=== PATIENT | male | born 1965 | race Caucasian/White ===

== ENCOUNTER 2018-03-15 02:18 | Emergency (ER) | payer OTHER, SELFPAY ==
[2018-03-15] VITALS (10 sets, daily range): BP systolic 112–184; BP diastolic 67–102; PULSE 66–73; RESP 16–20; TEMP 36.7; O2SAT 93–100; BMI 41.8
--- NOTE | 2018-03-15 02:31 | DI.CT.S_ITS ---
PROCEDURE: CT ABDOMEN PELVIS W CON INDICATIONS: severe abdominal pain. obstruction? volvulus? TECHNIQUE: After the administration of intravenous contrast, 5 mm thick sections acquired from the diaphragm to the symphysis. 5 mm coronal and sagittal reformats were acquired. For radiation dose reduction, the following was used: automated exposure control, adjustment of mA and/or kV according to patient size. COMPARISON: [facility], CT, ABDOMEN/PELVIS WITH CONTRAST, 04/10/2017, 14:10. 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 ABDOMEN: Lung bases: Lung bases are clear. Heart size is normal. Solid organs: Liver is normal in size and enhancement, liver showing a mild degree of diffuse fatty infiltration. Gallbladder appears normal. Biliary system is non dilated. Pancreas enhances normally. Spleen is normal in size and enhancement. No adrenal nodules. Normal right kidney. Left kidney is hydronephrotic secondary to a 3 mm obstructing calculus in the distal ureter, probably displaced from the midpole collecting system present on last exam. There is mild periureteric fat stranding. Left kidney also shows small exophytic cyst in the posterior lower pole and inferior lower pole as before. Peritoneum and bowel: Bowel loops demonstrate normal wall thickness and caliber. Normal appendix. Left colectomy with ostial hernia. No free fluid or air. Nodes and vessels: No retroperitoneal or mesenteric adenopathy by size criteria. Aorta and inferior vena cava are normal in size. Miscellaneous: Large ventral hernia developed since last exam and containing multiple loops of nonobstructed bowel. PELVIS: Genitourinary: Bladder wall thickness is normal. A 2 cm thickwalled fluid collection is again noted over the dome of the bladder, slightly smaller than on last exam. The fluid collection does not contain air on current study. There is mild surrounding fat stranding. The fluid collection is adjacent to the termination of the rectal stump where there are radiopaque sutures. Miscellaneous: No inguinal hernias or adenopathy. Bones: No suspicious bony lesions. No acute vertebral body compression fractures, mild anterior wedging L1 as before. IMPRESSION: 1. Left hydroureteronephrosis secondary to an obstructing 3 mm stone at the distal ureter. 2. Interval development of a large midline ventral hernia containing nonobstructed bowel loops. 3. Left ostial hernia has developed since last exam. 4. Small contained chronic abscess cavity at the dome of the bladder and adjacent to the rectal stump, decreased in size since last exam. Findings are concordant with the preliminary report. Dictated by: Vance Wan M.D. on 03/15/2018 at 8:53 Approved by: Vance Wan M.D. on 03/15/2018 at 9:04
[2018-03-15] MEDS: fentaNYL 100 MCG/2 ML INJ 150 MCG IV (02:51)
[2018-03-15] MEDS: KETAMINE 500 MG/10 ML INJ 15 MG IV (02:51)
[2018-03-15] MEDS: SODIUM CHLORIDE 0.9% 1,000 ML 1000 ML IV (02:52)
[2018-03-15 02:57] LABS: Add Manual Diff / Slide Review NO; Basophils Percent Auto 1.3 % (0-2); Eosinophils Percent Auto 2.9 % (2-4); Hematocrit 48.2 % (41-53); Hemoglobin 16.7 g/dL (13.5-17.5); Lymphocytes Percent Auto 18.6 % (25-40); Mean Corpuscular HGB Conc 34.6 % (30-36); Mean Corpuscular Hemoglobin 31.4 PG (26-34); Mean Corpuscular Volume 90.6 fL (80-100); Monocytes Percent Auto 8.5 % (3-14); Neutrophils Absolute Auto 11200 /uL (3000-5900); Neutrophils Percent Auto 68.7 % (50-75); Platelet Count 294 X10^3/uL (150-400); Red Blood Cell Count 5.32 X10^6/uL (4.5-5.9); Red Cell Distribution Width 13.7 % (11.6-14.8); White Blood Cell Count 16.3 X10^3/uL (4.5-11.0)
[2018-03-15] MEDS: KETAMINE 500 MG/10 ML INJ 25 MG IV (02:57)
[2018-03-15] MEDS: fentaNYL 100 MCG/2 ML INJ 50 MCG IV (02:57)
[2018-03-15 03:04] LABS: Alanine Aminotransferase 29 IU/L (21-72); Albumin 4.5 g/dL (3.5-5.0); Albumin Globulin Ratio 1.1 (1.0-2.8); Alkaline Phosphatase 96 U/L (38-126); Aspartate Aminotransferase 25 IU/L (17-59); BUN Creatinine Ratio 21.3 (6-22); Bilirubin Total 1.1 mg/dL (0.2-1.3); Calcium 9.9 mg/dL (8.4-10.2); Estimated Glomerular Filt Rate > 60.0 mL/min (>60); Globulin 4.1 g/dL (1.7-4.1); Glucose 106 mg/dL (70-100); HEMOLYSIS < 15 (0-50); Lactate (Lactic Acid) 3.2 mmol/L (0.7-2.1); Lipase 98 U/L (23-300); Potassium 4.4 mmol/L (3.4-5.1); Sodium 143 mmol/L (137-145); Total Protein 8.6 g/dL (6.3-8.2)
--- NOTE | 2018-03-15 03:04 | DI.RAD.S_ITS ---
PROCEDURE: XR CHEST 1V INDICATIONS: upper abdominal pain TECHNIQUE: One view of the chest was acquired. COMPARISON: [facility], , ABDOMEN ACUTE SERIES, 12/19/2011, 2:05. FINDINGS: Surgical changes and devices: None. Lungs and pleura: No pleural effusions or pneumothorax. Lungs are clear. Mediastinum: Mediastinal contours appear normal, superior mediastinum magnified by supine, AP view. Heart size is normal. Bones and chest wall: No suspicious bony lesions. Overlying soft tissues appear unremarkable. IMPRESSION: No acute cardiopulmonary abnormality Dictated by: Vance Wan M.D. on 03/15/2018 at 7:59 Approved by: Vance Wan M.D. on 03/15/2018 at 8:01
[2018-03-15] MEDS: KETAMINE 500 MG/10 ML INJ 20 MG IV (03:15)
--- NOTE | 2018-03-15 03:30 | PC.NURSE ---
pt is responsive to ketamine for 15min or so per push. provider notified. pain is coming in large waves. pt is unable to hold still, follow diretions or even talk during pain spells.
[2018-03-15 03:37] LABS: Troponin I < 0.012 ng/mL (0.01-0.034)
[2018-03-15] MEDS: HYDROMORPHONE 2 MG INJ 3 MG IM (03:51)
[2018-03-15] MEDS: KETOROLAC 60 MG/2 ML VIAL IM (04:19)
[2018-03-15 05:30] LABS: Add Manual Diff / Slide Review NO; Basophils Percent Auto 0.7 % (0-2); Eosinophils Percent Auto 0.9 % (2-4); Hematocrit 44.7 % (41-53); Hemoglobin 15.3 g/dL (13.5-17.5); Lymphocytes Percent Auto 6.9 % (25-40); Mean Corpuscular HGB Conc 34.3 % (30-36); Mean Corpuscular Volume 90.4 fL (80-100); Monocytes Percent Auto 7.1 % (3-14); Neutrophils Absolute Auto 12300 /uL (3000-5900); Neutrophils Percent Auto 84.4 % (50-75); Platelet Count 220 X10^3/uL (150-400); Red Blood Cell Count 4.94 X10^6/uL (4.5-5.9); Red Cell Distribution Width 13.5 % (11.6-14.8); White Blood Cell Count 14.6 X10^3/uL (4.5-11.0)
--- NOTE | 2018-03-15 05:49 | PC.NURSE ---
distended abdomen adjacent to ostomy site. reports no output for 2 days in ostomy.
[2018-03-15 05:56] LABS: Appearance Urine UA CLEAR; Bilirubin Urine UA NEGATIVE (NEGATIVE); Color Urine UA YELLOW; Glucose Urine UA NEGATIVE (Negative); Ketones Urine UA 1+ (NEGATIVE); Leukocyte Esterase Urine UA NEGATIVE (NEGATIVE); Nitrite Urine UA NEGATIVE (NEGATIVE); Occult Blood Urine UA 2+ (Negative); Protein Urine UA NEGATIVE (Negative); Specific Gravity Urine UA <=1.005 (1.000-1.035); Urobilinogen Urine UA 0.2 E.U./dL (0.2)
[2018-03-15 06:05] LABS: RBC Urine 1-5/HPF (0-5/HPF); Squamous Epithelial Cell Urine 0-1 /HPF
[2018-03-15 06:06] LABS: Bacteria Urine None Seen; Culture Indicated Urine Cult Not Indicated
--- NOTE | 2018-03-15 06:33 | ED.ABDPAIN ---
HPI - Abdominal Pain General Stated Complaint: has colostomy, guts are hurting Time Seen by Provider: 03/15/18 02:31 History of Present Illness HPI narrative: HPI 53-year-old obese male with a colostomy (2/2 diverticulitis surgery) presents for evaluation of severe abdominal pain with dissension that is been present for 3 hours after eating a hamburger. Patient reports that he has a fractured tailbone with long-standing chronic pain for which he takes over 20 mg PO Dilaudid a day. M/S/F/SocHx notable for: please see HPI; remainder reviewed with patient and in chart. ROS: Negative constitutional, eye, cardiovascular, pulmonary, GI, , MSK, skin, neurologic, psychiatric, endocrine unless noted in the HPI. Exam Gen: pleasant, appears to be in significant discomfort. HEENT: NC, AT, PEERL, EOMI. Resp: Clear to auscultation bilaterally, normal work of breathing, no accessory muscle usage. Card: Regular rate and rhythm with no murmurs, rubs, or gallops, extremities warm and well perfused. GI: markedly distended, diffuse tenderness to palpation. Ostomy and left side without output. : No suprapubic tenderness to palpation. No CVA tenderness percussion. MSK: No visible deformities, strength and tone without visually appreciable deficit. Skin: Normal color with no visible lesions. Neuro: AO x 3, no facial asymmetry, vision and hearing WNL. Psych: Mood and affect appropriate. Labs / Imaging: WBC 16.3, hemoglobin 16.7, sodium 143, potassium 4.4, lactic acid 3.2 WBC 14.6, lactic 1.0 EKG: SR 69 bpm, no ST segment elevations or depressions, no LBBB. CT abdomen/pelvis: mildly obstructing 3.2 mm distal left ureteral stone. Status post colectomy with left sided colostomy. Interval development of large mid abdominal ventral war hernia containing multiple small bowel segments with no evidence for obstruction. Ostomy hernia is present having develop from the previous study. 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 This diminish in size from prior study. UA - 2+ occult blood, negative nitrate, negative leukocyte esterase, 1-5 RBCs, 0-1 epithelial cells, no bacteria. MDM Previous chart, nursing note, labs, imaging, and vitals reviewed. A: 53-year-old obese male with a colostomy (2/2 diverticulitis surgery) presents for evaluation of severe abdominal pain with dissension that is been present for 3 hours after eating a hamburger. DDx & Evaluation: patient with difficult to control pain. Initial 100 ??g fentanyl and 15 mg ketamine without significant appreciable effect. Titrated meds at bedside to an additional 100 ??g fentanyl and 25 mg ketamine with good analgesia. Patient given IV fluids. Overnight radiology read without evidence of small bowel obstruction and the site of his herniation or other complications, however it is notable for 3 mm left-sided obstructing stone. While the patient's marked pain response may be due to ureterolithiasis combined with central centralization/hyperalgesia due to his significant daily opiate requirement, however there is a concern that is overall clinical picture may not be congruent with imaging. The case was discussed with the surgeon on-call at [facility], they noted that if the patient's condition was due to a surgical issue is beyond the care of this facility. They requested outside surgical consultation. Images were sent to and the patient's presentation, labs, and imaging were jointly reviewed with Dr. Alejandra. The patient also was given 60 mg IM ketorolac (IV access had been lost at this point). Patient with good analgesia following ketorolac. Repeat CBC and lactic acid with downtrending leukocytosis and normalization of the patient's lactic acid level. Strongly suspect ureterolithiasis as a cause of the patient's pain. No evidence of urinary tract infection. Patient with persistent resolution of pain after the ketorolac. Discharge with PCP follow-up recommended. Patient provided with written copy of CT impression. Impression: ureterolithiasis. (please reference below for remainder of encounter information) Related Data Home Medications Medication Instructions Recorded Confirmed trazodone 100 mg PO HS #0 11/17/11 ACETAMINOPHEN 650 mg PO Q6H #0 03/08/17 hydromorphone [Dilaudid] 6 mg PO Q4HP PRN #0 03/08/17 ibuprofen 800 mg PO TIDP PRN #0 03/08/17 [ORAJEL] PRN PRN #0 06/11/17 benzocaine [Anbesol (benzocaine) 1 oz PO PRN PRN #0 06/11/17 Max Str] oxycodone 5 mg PO Q3HP PRN #0 06/11/17 penicillin V potassium 500 mg PO Q6H #0 06/11/17 Previous Rx's Medication Instructions Recorded clindamycin HCl [Cleocin HCl] 300 mg PO TID #30 cap 06/11/17 hydromorphone [Dilaudid] 2 tab PO QIDP PRN #40 tab 06/11/17 Allergies Allergy/AdvReac Type Severity Reaction Status Date / Time No Known Allergies Allergy Uncoded 02/02/18 12:00 [facility] Social History Smoking Status: Never smoker Exam Initial Vital Signs Initial Vital Signs: Vital Signs Pulse Rate 72 03/15/18 03:00 Blood Pressure 142/67 H 03/15/18 03:00 Course Orders Ordered: ED Orders 03/15/18 02:31 CT abdomen pelvis w con Stat 03/15/18 02:40 Complete Blood Count AUTO DIFF Stat Comprehensive Metabolic Panel Stat Lactate (Lactic Acid) Stat Lipase Stat Troponin I Stat 03/15/18 03:04 XR chest 1V Stat EKG-12 Lead Stat 03/15/18 05:20 Complete Blood Count AUTO DIFF Stat Lactate (Lactic Acid) Stat 03/15/18 05:34 UA Complete [Urinalysis and Microscopic] Stat Hydromorphone HCl (Dilaudid) 3 mg IM Q4H PRN PRN Reason: Pain, Severe Discontinued Medications Fentanyl (Sublimaze) 150 mcg IV NOW ONE Stop: 03/15/18 02:32 Last Admin: 03/15/18 02:51 Dose: 150 mcg Fentanyl (Sublimaze) 50 mcg IV Q1H ONE Stop: 03/15/18 02:58 Hydromorphone HCl (Dilaudid) 1.5 mg IV NOW ONE Stop: 03/15/18 03:29 Sodium Chloride (Normal Saline 0.9%) 1,000 mls @ 1,000 mls/hr IV BOLUS ONE Stop: 03/15/18 03:30 Last Admin: 03/15/18 02:52 Dose: 1,000 mls/hr Ketamine HCl (Ketalar) 15 mg IV NOW ONE Stop: 03/15/18 02:32 Last Admin: 03/15/18 02:51 Dose: 15 mg Ketamine HCl (Ketalar) 500 mg IV CONT ONE Stop: 03/15/18 04:46 Ketamine HCl (Ketalar) 100 mg IM NOW ONE Stop: 03/15/18 03:52 Ketamine HCl (Ketalar) 25 mg IV NOW ONE Stop: 03/15/18 02:58 Ketamine HCl (Ketalar) 20 mg IV NOW ONE Stop: 03/15/18 03:16 Ketorolac Tromethamine (Toradol) 60 mg IM NOW ONE Stop: 03/15/18 04:20 Vital Signs - 8 hr 03/15/18 03:00 03/15/18 03:15 03/15/18 03:30 Temperature Pulse Rate 72 71 66 Respiratory Rate 16 16 Blood Pressure Blood Pressure [Left Arm] 142/67 H 126/68 H 127/84 H Pulse Oximetry 100 100 03/15/18 04:15 03/15/18 04:30 03/15/18 04:45 Temperature Pulse Rate 68 69 69 Respiratory Rate 16 16 16 Blood Pressure Blood Pressure [Left Arm] 153/93 H 149/89 H 149/89 H Pulse Oximetry 100 100 94 03/15/18 05:04 03/15/18 05:42 03/15/18 06:22 Temperature 98.0 F Pulse Rate 73 73 70 Respiratory Rate 20 20 16 Blood Pressure 184/102 H Blood Pressure [Left Arm] 135/79 H 112/71 Pulse Oximetry 98 98 94 MDM - Abdominal Pain Lab Data Result diagrams: 03/15/18 05:20 03/15/18 02:40 Lab Results 03/15/18 03/15/18 03/15/18 Range/Units 02:40 02:40 02:40 WBC 16.3 H (4.5-11.0) X10^3/uL RBC 5.32 (4.5-5.9) X10^6/uL Hgb 16.7 (13.5-17.5) g/dL Hct 48.2 (41-53) % MCV 90.6 (80-100) fL MCH 31.4 (26-34) PG MCHC 34.6 (30-36) % RDW 13.7 (11.6-14.8) % Plt Count 294 (150-400) X10^3/uL Neut % (Auto) 68.7 (50-75) % Lymph % (Auto) 18.6 L (25-40) % [place] % (Auto) 8.5 (3-14) % Eos % (Auto) 2.9 (2-4) % Baso % (Auto) 1.3 (0-2) % Neut # (Auto) 91857 H (4198-9899) /uL Sodium 143 (137-145) mmol/L Potassium 4.4 (3.4-5.1) mmol/L Chloride 106.0 (98-107) mmol/L Carbon Dioxide 19.0 L (22-32) mmol/L BUN 17.0 (9-20) mg/dL Creatinine 0.80 (0.66-1.25) mg/dL Estimated GFR > 60.0 (>60) mL/min BUN/Creatinine Ratio 21.3 (6-22) Glucose 106 H (70-100) mg/dL Lactate 3.2 H (0.7-2.1) mmol/L Calcium 9.9 (8.4-10.2) mg/dL Total Bilirubin 1.1 (0.2-1.3) mg/dL AST 25 (17-59) IU/L ALT 29 (21-72) IU/L Alkaline Phosphatase 96 (38-126) U/L Troponin I (0.01-0.034) ng/mL Total Protein 8.6 H (6.3-8.2) g/dL Albumin 4.5 (3.5-5.0) g/dL Globulin 4.1 (1.7-4.1) g/dL Albumin/Globulin Ratio 1.1 (1.0-2.8) Lipase 98 (23-300) U/L Urine Color Urine Appearance Urine pH (4.5-8.0) Ur Specific [place] (1.000-1.035) Urine Protein (Negative) Urine Glucose (UA) (Negative) g/dL Urine Ketones (NEGATIVE) Urine Occult Blood (Negative) Urine Nitrate (NEGATIVE) Urine Bilirubin (NEGATIVE) Urine Urobilinogen (0.2) E.U./dL Ur Leukocyte Esterase (NEGATIVE) Urine RBC (0-5/HPF) Ur Squamous Epith Cells Urine Bacteria (None) Ur Culture Indicated? Micro UA Comment 03/15/18 03/15/18 03/15/18 Range/Units 02:40 05:20 05:20 WBC 14.6 H (4.5-11.0) X10^3/uL RBC 4.94 (4.5-5.9) X10^6/uL Hgb 15.3 (13.5-17.5) g/dL Hct 44.7 (41-53) % MCV 90.4 (80-100) fL MCH 31.0 (26-34) PG MCHC 34.3 (30-36) % RDW 13.5 (11.6-14.8) % Plt Count 220 (150-400) X10^3/uL Neut % (Auto) 84.4 H (50-75) % Lymph % (Auto) 6.9 L (25-40) % [place] % (Auto) 7.1 (3-14) % Eos % (Auto) 0.9 L (2-4) % Baso % (Auto) 0.7 (0-2) % Neut # (Auto) 58607 H (1707-0205) /uL Sodium (137-145) mmol/L Potassium (3.4-5.1) mmol/L Chloride (98-107) mmol/L Carbon Dioxide (22-32) mmol/L BUN (9-20) mg/dL Creatinine (0.66-1.25) mg/dL Estimated GFR (>60) mL/min BUN/Creatinine Ratio (6-22) Glucose (70-100) mg/dL Lactate 1.0 (0.7-2.1) mmol/L Calcium (8.4-10.2) mg/dL Total Bilirubin (0.2-1.3) mg/dL AST (17-59) IU/L ALT (21-72) IU/L Alkaline Phosphatase (38-126) U/L Troponin I < 0.012 (0.01-0.034) ng/mL Total Protein (6.3-8.2) g/dL Albumin (3.5-5.0) g/dL Globulin (1.7-4.1) g/dL Albumin/Globulin Ratio (1.0-2.8) Lipase (23-300) U/L Urine Color Urine Appearance Urine pH (4.5-8.0) Ur Specific [place] (1.000-1.035) Urine Protein (Negative) Urine Glucose (UA) (Negative) g/dL Urine Ketones (NEGATIVE) Urine Occult Blood (Negative) Urine Nitrate (NEGATIVE) Urine Bilirubin (NEGATIVE) Urine Urobilinogen (0.2) E.U./dL Ur Leukocyte Esterase (NEGATIVE) Urine RBC (0-5/HPF) Ur Squamous Epith Cells Urine Bacteria (None) Ur Culture Indicated? Micro UA Comment 03/15/18 Range/Units 05:34 WBC (4.5-11.0) X10^3/uL RBC (4.5-5.9) X10^6/uL Hgb (13.5-17.5) g/dL Hct (41-53) % MCV (80-100) fL MCH (26-34) PG MCHC (30-36) % RDW (11.6-14.8) % Plt Count (150-400) X10^3/uL Neut % (Auto) (50-75) % Lymph % (Auto) (25-40) % [place] % (Auto) (3-14) % Eos % (Auto) (2-4) % Baso % (Auto) (0-2) % Neut # (Auto) (3860-0450) /uL Sodium (137-145) mmol/L Potassium (3.4-5.1) mmol/L Chloride (98-107) mmol/L Carbon Dioxide (22-32) mmol/L BUN (9-20) mg/dL Creatinine (0.66-1.25) mg/dL Estimated GFR (>60) mL/min BUN/Creatinine Ratio (6-22) Glucose (70-100) mg/dL Lactate (0.7-2.1) mmol/L Calcium (8.4-10.2) mg/dL Total Bilirubin (0.2-1.3) mg/dL AST (17-59) IU/L ALT (21-72) IU/L Alkaline Phosphatase (38-126) U/L Troponin I (0.01-0.034) ng/mL Total Protein (6.3-8.2) g/dL Albumin (3.5-5.0) g/dL Globulin (1.7-4.1) g/dL Albumin/Globulin Ratio (1.0-2.8) Lipase (23-300) U/L Urine Color Yellow Urine Appearance Clear Urine pH 8.0 (4.5-8.0) Ur Specific [place] <=1.005 (1.000-1.035) Urine Protein Negative (Negative) Urine Glucose (UA) Negative (Negative) g/dL Urine Ketones 1+ H (NEGATIVE) Urine Occult Blood 2+ H (Negative) Urine Nitrate Negative (NEGATIVE) Urine Bilirubin Negative (NEGATIVE) Urine Urobilinogen 0.2 (0.2) E.U./dL Ur Leukocyte Esterase Negative (NEGATIVE) Urine RBC 1-5/hpf (0-5/HPF) Ur Squamous Epith Cells 0-1 /hpf Urine Bacteria None seen (None) Ur Culture Indicated? Cult not indicated Micro UA Comment Not Reportable Discharge Plan Departure Prescriptions: No Action trazodone 100 MG tablet 100 mg PO HS Qty: 0 RF: 0 ACETAMINOPHEN 650 mg PO Q6H Qty: 0 RF: 0 ibuprofen 800 MG tablet 800 mg PO TIDP PRNQty: 0 RF: 0 hydromorphone [Dilaudid] 2 MG tablet 6 mg PO Q4HP PRNQty: 0 RF: 0 penicillin V potassium 500 MG tablet 500 mg PO Q6H Qty: 0 RF: 0 oxycodone 5 MG tablet 5 mg PO Q3HP PRNQty: 0 RF: 0 benzocaine [Anbesol (benzocaine) Max Str] 20 % gel 1 oz PO PRN PRNQty: 0 RF: 0 [ORAJEL] PRN PRNQty: 0 RF: 0 hydromorphone [Dilaudid] 4 MG tablet 2 tab PO QIDP PRNQty: 40 RF: 0 clindamycin HCl [Cleocin HCl] 300 MG capsule 300 mg PO TID Qty: 30 RF: 0
[2018-03-15] MEDS: KETAMINE 500 MG/10 ML INJ 100 MG IM (06:39)
[2018-03-15 06:50] LABS: Reflexed Lactate in 2 Hours Y
== END 2018-03-15 07:36 | disposition home or self-care (01) ==
PROVIDERS: Emergency Provider Emergency Medicine
DX: N20.1 Calculus of ureter (principal)
CPT/HCPCS: 36415; 36591; 71045; 74177; 80053; 81001; 83605; 83690; 84484; 85025; 93005; 96361; 96374; 96375; 96376; 99285; 99291; 99292; J1170; J1885; J3010; Q9967

== ENCOUNTER 2018-09-16 17:59 | Emergency (ER) | payer OTHER, SELFPAY ==
[2018-09-16 18:00] VITALS: BP 181/96; PULSE 82; RESP 18; TEMP 36.2; O2SAT 96; BMI 42.3
[2018-09-16] MEDS: PANTOPRAZOLE 40 MG VIAL IV (18:44)
[2018-09-16] MEDS: ONDANSETRON 4 MG/2 ML INJ IV (18:44)
[2018-09-16] MEDS: HYDROMORPHONE 1 MG INJ 2 MG IV ×3 (18:48→23:03)
--- NOTE | 2018-09-16 18:48 | ED.ABDPAIN ---
HPI - Abdominal Pain General Chief Complaint: Abdominal Pain Stated Complaint: Pain in intestines, bleeding rectum Time Seen by Provider: 09/16/18 18:13 Source: patient Mode of arrival: ambulatory Limitations: no limitations History of Present Illness HPI narrative: 53-year-old nonsmoking male with extensive abdominal surgical history presents to the emergency department with a chief complaint a few days of worsening left lower quadrant pain and now the passage mucus or pus from his rectum along with some blood. He Dunlap diverticulitis for about 6 years prior to partial colectomy in December of 2016. His surgery was performed at [facility] and they did a reanastomosis which unfortunately dehisced about 1 month later. The patient had multiple surgeries as a result this unfortunate complication and in the and had a diverting colostomy after an exploratory laparotomy. He has largely been well for the past year and has not seen his surgeons at [facility] in about 1 year. His local care is at [facility]. He has had subjective fever and chills but denies nausea or vomiting. He denies runny nose, sore throat or cough. MD complaint: abdominal pain Onset (ago): day(s) Related Data Home Medications Medication Instructions Recorded Confirmed trazodone 100 mg PO HS #0 11/17/11 ACETAMINOPHEN 650 mg PO Q6H #0 03/08/17 hydromorphone [Dilaudid] 6 mg PO Q4HP PRN #0 03/08/17 ibuprofen 800 mg PO TIDP PRN #0 03/08/17 [ORAJEL] PRN PRN #0 06/11/17 benzocaine [Anbesol (benzocaine) 1 oz PO PRN PRN #0 06/11/17 Max Str] oxycodone 5 mg PO Q3HP PRN #0 06/11/17 penicillin V potassium 500 mg PO Q6H #0 06/11/17 Previous Rx's Medication Instructions Recorded clindamycin HCl [Cleocin HCl] 300 mg PO TID #30 cap 06/11/17 hydromorphone [Dilaudid] 2 tab PO QIDP PRN #40 tab 06/11/17 ciprofloxacin HCl 500 mg PO Q12H #20 tab 09/16/18 metronidazole [Flagyl] 500 mg PO QID 10 Days #40 tab 11/23/18 Allergies Allergy/AdvReac Type Severity Reaction Status Date / Time No Known Drug Allergies Allergy Verified 09/16/18 18:00 Review of Systems Review of Systems All systems reviewed & are unremarkable except as noted in HPI and below Constitutional Reports chills, Reports fever(s), Denies lethargy and Denies weakness Eyes Denies change in vision, Denies eye discharge, Denies irritation and Denies loss of vision ENT Ears, Nose, Mouth, and Throat: Denies change in voice, Denies neck pain and Denies sore throat Cardiovascular Denies chest pain, Denies irregular heart rhythm, Denies lightheadedness, Denies palpitations, Denies dyspnea, Denies dyspnea on exertion and Denies orthopnea Respiratory Denies cough, Denies dyspnea, Denies dyspnea on exertion and Denies wheezing Gastrointestinal Gastrointestinal: Reports abdominal pain, Denies change in bowel habits, Denies diarrhea, Denies nausea and Denies vomiting Comments: rectal discharge (sent to lab) Genitourinary Denies hematuria, Denies flank pain, Denies urinary incontinence and Denies urinary urgency Musculoskeletal Denies neck pain Integumentary/Breasts Denies pruritus, Denies erythema, Denies rash and Denies wounds Neurologic Denies confusion, Denies loss of vision and Denies weakness Psychiatric Denies anxiety, Denies confusion, Denies depression, Denies homicidal ideation and Denies suicidal ideation Endocrine Denies palpitations Hematologic/Lymphatic Denies easy bruising Allergic/Immunologic Denies wheezing PFSH Social History Smoking Status: Never smoker Exam Narrative Exam Narrative: GENERAL: Pleasant 53-year-old male in mild distress HEAD: Atraumatic. Normocephalic. No temporal or scalp tenderness. EYES: Pupils equal round and reactive. Extraocular motions intact. No scleral icterus. No injection or drainage. ENT: Nose without bleeding, purulent drainage or septal hematoma. Throat without erythema, tonsillar hypertrophy or exudate. Uvula midline. Airway patent. NECK: Trachea midline. No JVD or lymphadenopathy. Supple, nontender, no meningeal signs. CARDIOVASCULAR: Regular rate and rhythm without murmurs, gallops, or rubs. RESPIRATORY: Clear to auscultation. Breath sounds equal bilaterally. No wheezes, rales, or rhonchi. GASTROINTESTINAL: Abdomen soft, tender in left lower quadrant, nondistended. Ostomy filling with normal volume stool No hepato-splenomegaly, or palpable masses. No guarding. EXTREMITIES: No clubbing, cyanosis, or edema. No joint tenderness, effusion, or edema noted. BACK: Nontender without deformity or crepitance. No flank tenderness. NEURO: AOx3. SKIN: No rash or erythema. Initial Vital Signs Initial Vital Signs: Vital Signs Temperature 97.2 F L 09/16/18 18:00 Pulse Rate 82 09/16/18 18:00 Respiratory Rate 18 09/16/18 18:00 Blood Pressure 181/96 H 09/16/18 18:00 Pulse Oximetry 96 09/16/18 18:00 Course Orders Ordered: ED Orders 09/16/18 18:25 Complete Blood Count AUTO DIFF Stat Comprehensive Metabolic Panel Stat Partial Thromboplastin Time Stat Prothrombin Time INR Stat Type and Screen Stat 09/16/18 18:30 GI Panel Stat Stool Culture Stat 09/16/18 19:03 CT abdomen pelvis w con Stat Discontinued Medications Hydromorphone HCl (Dilaudid) 2 mg IV NOW ONE Stop: 09/16/18 18:45 Last Admin: 09/16/18 18:48 Dose: 2 mg Hydromorphone HCl (Dilaudid) 2 mg IV NOW ONE Stop: 09/16/18 20:11 Last Admin: 09/16/18 20:17 Dose: 2 mg Hydromorphone HCl (Dilaudid) 2 mg IV NOW ONE Stop: 09/16/18 23:02 Last Admin: 09/16/18 23:03 Dose: 2 mg Sodium Chloride (Normal Saline 0.9%) 1,000 mls @ 1,000 mls/hr IV BOLUS ONE Stop: 09/16/18 21:15 Last Infusion: 09/16/18 21:32 Dose: 0 mls/hr Admin: 09/16/18 20:16 Dose: 1,000 mls/hr Ondansetron HCl (Zofran) 4 mg IV NOW ONE Stop: 09/16/18 18:16 Last Admin: 09/16/18 18:44 Dose: 4 mg Pantoprazole Sodium (Protonix) 40 mg IV NOW ONE Stop: 09/16/18 18:16 Last Admin: 09/16/18 18:44 Dose: 40 mg Consultations Consultation #1: consult with both radiology and gen. surgery whom agree CT ABD/Pelvis with oral/IV contrast is appropriate, but we will wait 90 minutes rather than typical 45 minutes. Consultation #2: call to [facility] whom suggests that given benign vitals, labs and lack of abscess or other more ominous finding on CT that patient can follow up in outpatient setting. They recommend ABX and will reach out to him on wednesday for follow up Vital Signs - 8 hr 09/16/18 20:21 09/16/18 23:27 Pulse Rate 80 78 Respiratory Rate 12 18 Blood Pressure 131/71 Blood Pressure [Right Arm] 134/78 Pulse Oximetry 97 99 MDM - Abdominal Pain Differential Diagnosis Differential diagnosis: Likely abdominal pain, acute appendicitis, calculus of kidney, constipation, diverticulitis, gastroenteritis, pancreatitis and small bowel obstruction Medical Records Attestation: I reviewed the patient's medical records. Lab Data Attestation: I reviewed the patient's lab results. Result diagrams: 09/16/18 18:25 09/16/18 18:25 Lab Results 09/16/18 09/16/18 09/16/18 Range/Units 18:25 18:25 18:25 WBC 12.0 H (4.5-11.0) X10^3/uL RBC 4.86 (4.5-5.9) X10^6/uL Hgb 15.1 (13.5-17.5) g/dL Hct 45.3 (41-53) % MCV 93.2 (80-100) fL MCH 31.0 (26-34) PG MCHC 33.3 (30-36) % RDW 13.9 (11.6-14.8) % Plt Count 236 (150-400) X10^3/uL Neut % (Auto) 73.4 (50-75) % Lymph % (Auto) 15.7 L (25-40) % [place] % (Auto) 7.4 (3-14) % Eos % (Auto) 2.8 (2-4) % Baso % (Auto) 0.7 (0-2) % Neut # (Auto) 8800 H (7067-1873) /uL PT 12.8 H (10.1-12.7) SECONDS INR 1.2 (0.9-1.3) APTT 28 (26.4-36.2) SECONDS Sodium 141 (137-145) mmol/L Potassium 4.4 (3.4-5.1) mmol/L Chloride 103 (98-107) mmol/L Carbon Dioxide 26 (22-32) mmol/L BUN 9 (9-20) mg/dL Creatinine 0.60 L (0.66-1.25) mg/dL Estimated GFR > 60.0 (>60) mL/min BUN/Creatinine Ratio 15.0 (6-22) Glucose 109 H (70-100) mg/dL Calcium 8.9 (8.4-10.2) mg/dL Total Bilirubin 0.4 (0.2-1.3) mg/dL AST 19 (17-59) IU/L ALT 30 (21-72) IU/L Alkaline Phosphatase 94 (38-126) U/L Total Protein 7.8 (6.3-8.2) g/dL Albumin 4.1 (3.5-5.0) g/dL Globulin 3.7 (1.7-4.1) g/dL Albumin/Globulin Ratio 1.1 (1.0-2.8) Stool Aeromonas Cult (Not Detect) Stl C. cayetanensis PCR (Not Detect) Stool Rotavirus (PCR) (Not Detect) Stool Adenovirus (PCR) (Not Detect) Stool Astrovirus (PCR) (Not Detect) Stool Cryptosporidium PCR (Not Detect) Stl E.coli Shiga Tox PCR (Not Detect) St Sh/Enteroin Ecoli PCR (Not Detect) Stool E coli O157 PCR Stl Enterotoxigenic E PCR (Not Detect) Stool EPEC (PCR) (Not Detect) Stl E. histolytica PCR (Not Detect) Stool Giardia Lamblia PCR (Not Detect) Stool Sapovirus (PCR) (Not Detect) Stl P. shigelloides PCR (Not Detect) St Y.enterocolitica PCR (Not Detect) Stool Vibrio (PCR) (Not Detect) Stl Vibrio cholerae PCR (Not Detect) Stl Enteroaggr Ecoli PCR (Not Detect) Stl Norovirus GI/GII PCR (Not Detect) Campylobacter (PCR) (Not Detect) C. difficile Tox (PCR) (Not Detect) Salmonella (PCR) (Not Detect) Blood Type Antibody Screen 09/16/18 09/16/18 Range/Units 18:25 18:30 WBC (4.5-11.0) X10^3/uL RBC (4.5-5.9) X10^6/uL Hgb (13.5-17.5) g/dL Hct (41-53) % MCV (80-100) fL MCH (26-34) PG MCHC (30-36) % RDW (11.6-14.8) % Plt Count (150-400) X10^3/uL Neut % (Auto) (50-75) % Lymph % (Auto) (25-40) % [place] % (Auto) (3-14) % Eos % (Auto) (2-4) % Baso % (Auto) (0-2) % Neut # (Auto) (8801-4481) /uL PT (10.1-12.7) SECONDS INR (0.9-1.3) APTT (26.4-36.2) SECONDS Sodium (137-145) mmol/L Potassium (3.4-5.1) mmol/L Chloride (98-107) mmol/L Carbon Dioxide (22-32) mmol/L BUN (9-20) mg/dL Creatinine (0.66-1.25) mg/dL Estimated GFR (>60) mL/min BUN/Creatinine Ratio (6-22) Glucose (70-100) mg/dL Calcium (8.4-10.2) mg/dL Total Bilirubin (0.2-1.3) mg/dL AST (17-59) IU/L ALT (21-72) IU/L Alkaline Phosphatase (38-126) U/L Total Protein (6.3-8.2) g/dL Albumin (3.5-5.0) g/dL Globulin (1.7-4.1) g/dL Albumin/Globulin Ratio (1.0-2.8) Stool Aeromonas Cult Awaiting culture res (Not Detect) Stl C. cayetanensis PCR Not detected (Not Detect) Stool Rotavirus (PCR) Not detected (Not Detect) Stool Adenovirus (PCR) Not detected (Not Detect) Stool Astrovirus (PCR) Not detected (Not Detect) Stool Cryptosporidium PCR Not detected (Not Detect) Stl E.coli Shiga Tox PCR Not detected (Not Detect) St Sh/Enteroin Ecoli PCR Not detected (Not Detect) Stool E coli O157 PCR Not Reportable Stl Enterotoxigenic E PCR Not detected (Not Detect) Stool EPEC (PCR) Not detected (Not Detect) Stl E. histolytica PCR Not detected (Not Detect) Stool Giardia Lamblia PCR Not detected (Not Detect) Stool Sapovirus (PCR) Not detected (Not Detect) Stl P. shigelloides PCR Not detected (Not Detect) St Y.enterocolitica PCR Not detected (Not Detect) Stool Vibrio (PCR) Not detected (Not Detect) Stl Vibrio cholerae PCR Not detected (Not Detect) Stl Enteroaggr Ecoli PCR Not detected (Not Detect) Stl Norovirus GI/GII PCR Not detected (Not Detect) Campylobacter (PCR) Not detected (Not Detect) C. difficile Tox (PCR) Not detected (Not Detect) Salmonella (PCR) Not detected (Not Detect) Blood Type A Negative Antibody Screen Negative Imaging Data CT scan - abdomen: Radiologist's impression: Chart Viewer Diagnostics DATE TYPE STATUS AUTHOR Hx 09/16/18 19:03 Selena Poole 03/15/18 03:04 Vance Wan 03/15/18 02:31 Vance WanWillem bonilla A 53, M0 1965 DEP ER, ED - Main ED: R02 177.8cm 133.81kg BSA: 2.46m? BMI: 42.3kg/m? Abdominal Pain Search Chart NF - Not included in interaction checking No Known Drug Allergies ONSET 09/16/18 23:27 [place] [address] CT Scan Report Signed Patient: DelonWillem bonilla [facility]#: [id number] : 1965Acct:[id number] Age/Sex: 53 / MDate of Service: 09/16/18 Loc: ED Accession Number: [id number] Procedure: CT abdomen pelvis w con Ordering Provider: Yury Amato D.O. PROCEDURE: CT ABDOMEN PELVIS W CON INDICATIONS: severe LLQ pain, extensive surgical hx TECHNIQUE: After the administration of oral and intravenous contrast, 5 mm thick sections acquired from the diaphragms to the symphysis. 5 mm thick coronal and sagittal reformats were performed. For radiation dose reduction, the following was used: automated exposure control, adjustment of mA and/or kV according to patient size. COMPARISON: [facility], CT, CT ABDOMEN PELVIS W CON, 03/15/2018, 3:07. FINDINGS: Image quality: Excellent. ABDOMEN: Lung bases: Lung bases are clear. Heart size is normal. Solid organs: Liver is normal in size and enhancement. Gallbladder is within normal limits. Biliary system is non-dilated. Pancreas enhances normally. Spleen is normal in size and enhancement. No adrenal nodules. Kidneys are normal in size and enhancement, without hydronephrosis. Peritoneum and bowel: Stomach, small bowel, and colon loops are normal in caliber and wall thickness. Duodenal diverticulum is present, as before. The rectum is oversewn, and is contiguous with the urinary bladder down , as before. No free fluid or air. Nodes and vessels: No retroperitoneal or mesenteric adenopathy. Aorta and inferior vena cava are normal in caliber. Miscellaneous: Left anterior abdominal colostomy is present. There is a new small bowel containing parastomal hernia measuring 32 mm in width. There is a large anterior abdominal wall small bowel containing hernia measuring 23 cm , as before. increased periumbilical small bowel containing hernia measuring 12.4 cm. PELVIS: Genitourinary: The urinary bladder dome is contiguous with the rectal stump. Previously seen fluid collection within the urinary bladder dome has resolved. Fat stranding surrounding the urinary bladder dome has resolved. Miscellaneous: No inguinal hernias or adenopathy. Bones: No suspicious bony lesions. No vertebral body compression fractures. IMPRESSION: 1. 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 Previously seen inflammation in this region has resolved. 2. Multiple ventral abdominal wall bowel containing hernias, without evidence of associated bowel strangulation, nor obstruction.. Dictated by: Selena Poole M.D. on 09/16/2018 at 21:22 Approved by: Selena Poole M.D. on 09/16/2018 at 21:26 Discharge Plan Departure Patient Disposition: Home Clinical Impression: [place]-vesical fistula Discharge Date/Time: 09/16/18 23:29 Interventions: ED Discharge Assessment Last Done: 09/16/18 23:27 Activity Restrictions/Additional Instructions: *You have been diagnosed with [ colovesicular fistula ] *What to do: *Take medications as directed: Your prescriptions have been electronically transmitted to the [facility] at your request *Follow up with the Colorectal Surgery Clinic at [facility] ([phone]), call for an appointment. Let them know you were seen in the Emergency Department and that we ask that you be seen in follow up *Return to ER if you should have any new, worsening or concerning symptoms, such as [worsening pain, fever, vomiting, increased drainage or other bothersome symptoms ] Prescriptions: New metronidazole [Flagyl] 500 mg tablet 500 mg PO QID 10 Days Qty: 40 RF: 0 ciprofloxacin HCl 500 mg tablet 500 mg PO Q12H Qty: 20 RF: 0 No Action trazodone 100 MG tablet 100 mg PO HS Qty: 0 RF: 0 ACETAMINOPHEN 650 mg PO Q6H Qty: 0 RF: 0 ibuprofen 800 MG tablet 800 mg PO TIDP PRNQty: 0 RF: 0 hydromorphone [Dilaudid] 2 MG tablet 6 mg PO Q4HP PRNQty: 0 RF: 0 penicillin V potassium 500 MG tablet 500 mg PO Q6H Qty: 0 RF: 0 oxycodone 5 MG tablet 5 mg PO Q3HP PRNQty: 0 RF: 0 benzocaine [Anbesol (benzocaine) Max Str] 20 % gel 1 oz PO PRN PRNQty: 0 RF: 0 [ORAJEL] PRN PRNQty: 0 RF: 0 hydromorphone [Dilaudid] 4 MG tablet 2 tab PO QIDP PRNQty: 40 RF: 0 clindamycin HCl [Cleocin HCl] 300 MG capsule 300 mg PO TID Qty: 30 RF: 0
[2018-09-16 18:53] LABS: Add Manual Diff / Slide Review NO; Basophils Percent Auto 0.7 % (0-2); Eosinophils Percent Auto 2.8 % (2-4); Hematocrit 45.3 % (41-53); Hemoglobin 15.1 g/dL (13.5-17.5); Lymphocytes Percent Auto 15.7 % (25-40); Mean Corpuscular HGB Conc 33.3 % (30-36); Mean Corpuscular Volume 93.2 fL (80-100); Monocytes Percent Auto 7.4 % (3-14); Neutrophils Absolute Auto 8800 /uL (3000-5900); Neutrophils Percent Auto 73.4 % (50-75); Platelet Count 236 X10^3/uL (150-400); Red Blood Cell Count 4.86 X10^6/uL (4.5-5.9); Red Cell Distribution Width 13.9 % (11.6-14.8)
[2018-09-16 19:01] LABS: INR 1.2 (0.9-1.3); Prothrombin Time 12.8 SECONDS (10.1-12.7)
[2018-09-16 19:03] LABS: PTT Partial Thromboplastin Tim 28 SECONDS (26.4-36.2)
--- NOTE | 2018-09-16 19:03 | DI.CT.S_ITS ---
PROCEDURE: CT ABDOMEN PELVIS W CON INDICATIONS: severe LLQ pain, extensive surgical hx TECHNIQUE: After the administration of oral and intravenous contrast, 5 mm thick sections acquired from the diaphragms to the symphysis. 5 mm thick coronal and sagittal reformats were performed. For radiation dose reduction, the following was used: automated exposure control, adjustment of mA and/or kV according to patient size. COMPARISON: [facility], CT, CT ABDOMEN PELVIS W CON, 03/15/2018, 3:07. FINDINGS: Image quality: Excellent. ABDOMEN: Lung bases: Lung bases are clear. Heart size is normal. Solid organs: Liver is normal in size and enhancement. Gallbladder is within normal limits. Biliary system is non-dilated. Pancreas enhances normally. Spleen is normal in size and enhancement. No adrenal nodules. Kidneys are normal in size and enhancement, without hydronephrosis. Peritoneum and bowel: Stomach, small bowel, and colon loops are normal in caliber and wall thickness. Duodenal diverticulum is present, as before. The rectum is oversewn, and is contiguous with the urinary bladder down , as before. No free fluid or air. Nodes and vessels: No retroperitoneal or mesenteric adenopathy. Aorta and inferior vena cava are normal in caliber. Miscellaneous: Left anterior abdominal colostomy is present. There is a new small bowel containing parastomal hernia measuring 32 mm in width. There is a large anterior abdominal wall small bowel containing hernia measuring 23 cm , as before. increased periumbilical small bowel containing hernia measuring 12.4 cm. PELVIS: Genitourinary: The urinary bladder dome is contiguous with the rectal stump. Previously seen fluid collection within the urinary bladder dome has resolved. Fat stranding surrounding the urinary bladder dome has resolved. Miscellaneous: No inguinal hernias or adenopathy. Bones: No suspicious bony lesions. No vertebral body compression fractures. IMPRESSION: 1. 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 Previously seen inflammation in this region has resolved. 2. Multiple ventral abdominal wall bowel containing hernias, without evidence of associated bowel strangulation, nor obstruction.. Dictated by: Selena Poole M.D. on 09/16/2018 at 21:22 Approved by: Selena Poole M.D. on 09/16/2018 at 21:26
[2018-09-16 19:04] LABS: Alanine Aminotransferase 30 IU/L (21-72); Albumin 4.1 g/dL (3.5-5.0); Albumin Globulin Ratio 1.1 (1.0-2.8); Alkaline Phosphatase 94 U/L (38-126); Aspartate Aminotransferase 19 IU/L (17-59); Bilirubin Total 0.4 mg/dL (0.2-1.3); Blood Urea Nitrogen 9 mg/dL (9-20); Calcium 8.9 mg/dL (8.4-10.2); Carbon Dioxide 26 mmol/L (22-32); Chloride 103 mmol/L (98-107); Estimated Glomerular Filt Rate > 60.0 mL/min (>60); Globulin 3.7 g/dL (1.7-4.1); Glucose 109 mg/dL (70-100); HEMOLYSIS < 15 (0-50); Potassium 4.4 mmol/L (3.4-5.1); Sodium 141 mmol/L (137-145); Total Protein 7.8 g/dL (6.3-8.2)
--- NOTE | 2018-09-16 19:30 | ED_ITS ---
HPI - Abdominal Pain General Chief Complaint: Abdominal Pain Stated Complaint: Pain in intestines, bleeding rectum Time Seen by Provider: 09/16/18 18:13 Source: patient Mode of arrival: ambulatory Limitations: no limitations History of Present Illness HPI narrative: 53-year-old nonsmoking male with extensive abdominal surgical history presents to the emergency department with a chief complaint a few days of worsening left lower quadrant pain and now the passage mucus or pus from his rectum along with some blood. He Dunlap diverticulitis for about 6 years prior to partial colectomy in December of 2016. His surgery was performed at [facility] and they did a reanastomosis which unfortunately dehisced about 1 month later. The patient had multiple surgeries as a result this unfortunate complication and in the and had a diverting colostomy after an exploratory laparotomy. He has largely been well for the past year and has not seen his surgeons at [facility] in about 1 year. His local care is at [facility]. He has had subjective fever and chills but denies nausea or vomiting. He denies runny nose, sore throat or cough. MD complaint: abdominal pain Onset (ago): day(s) Related Data Home Medications Medication Instructions Recorded Confirmed trazodone 100 mg PO HS #0 11/17/11 ACETAMINOPHEN 650 mg PO Q6H #0 03/08/17 hydromorphone [Dilaudid] 6 mg PO Q4HP PRN #0 03/08/17 ibuprofen 800 mg PO TIDP PRN #0 03/08/17 [ORAJEL] PRN PRN #0 06/11/17 benzocaine [Anbesol (benzocaine) 1 oz PO PRN PRN #0 06/11/17 Max Str] oxycodone 5 mg PO Q3HP PRN #0 06/11/17 penicillin V potassium 500 mg PO Q6H #0 06/11/17 Previous Rx's Medication Instructions Recorded clindamycin HCl [Cleocin HCl] 300 mg PO TID #30 cap 06/11/17 hydromorphone [Dilaudid] 2 tab PO QIDP PRN #40 tab 06/11/17 ciprofloxacin HCl 500 mg PO Q12H #20 tab 09/16/18 metronidazole [Flagyl] 500 mg PO QID 10 Days #40 tab 11/23/18 Allergies Allergy/AdvReac Type Severity Reaction Status Date / Time No Known Drug Allergies Allergy Verified 09/16/18 18:00 Review of Systems Review of Systems All systems reviewed & are unremarkable except as noted in HPI and below Constitutional Reports chills, Reports fever(s), Denies lethargy and Denies weakness Eyes Denies change in vision, Denies eye discharge, Denies irritation and Denies loss of vision ENT Ears, Nose, Mouth, and Throat: Denies change in voice, Denies neck pain and Denies sore throat Cardiovascular Denies chest pain, Denies irregular heart rhythm, Denies lightheadedness, Denies palpitations, Denies dyspnea, Denies dyspnea on exertion and Denies orthopnea Respiratory Denies cough, Denies dyspnea, Denies dyspnea on exertion and Denies wheezing Gastrointestinal Gastrointestinal: Reports abdominal pain, Denies change in bowel habits, Denies diarrhea, Denies nausea and Denies vomiting Comments: rectal discharge (sent to lab) Genitourinary Denies hematuria, Denies flank pain, Denies urinary incontinence and Denies urinary urgency Musculoskeletal Denies neck pain Integumentary/Breasts Denies pruritus, Denies erythema, Denies rash and Denies wounds Neurologic Denies confusion, Denies loss of vision and Denies weakness Psychiatric Denies anxiety, Denies confusion, Denies depression, Denies homicidal ideation and Denies suicidal ideation Endocrine Denies palpitations Hematologic/Lymphatic Denies easy bruising Allergic/Immunologic Denies wheezing PFSH Social History Smoking Status: Never smoker Exam Narrative Exam Narrative: GENERAL: Pleasant 53-year-old male in mild distress HEAD: Atraumatic. Normocephalic. No temporal or scalp tenderness. EYES: Pupils equal round and reactive. Extraocular motions intact. No scleral icterus. No injection or drainage. ENT: Nose without bleeding, purulent drainage or septal hematoma. Throat without erythema, tonsillar hypertrophy or exudate. Uvula midline. Airway patent. NECK: Trachea midline. No JVD or lymphadenopathy. Supple, nontender, no meningeal signs. CARDIOVASCULAR: Regular rate and rhythm without murmurs, gallops, or rubs. RESPIRATORY: Clear to auscultation. Breath sounds equal bilaterally. No wheezes , rales, or rhonchi. GASTROINTESTINAL: Abdomen soft, tender in left lower quadrant, nondistended. Ostomy filling with normal volume stool No hepato-splenomegaly, or palpable masses. No guarding. EXTREMITIES: No clubbing, cyanosis, or edema. No joint tenderness, effusion, or edema noted. BACK: Nontender without deformity or crepitance. No flank tenderness. NEURO: AOx3. SKIN: No rash or erythema. Initial Vital Signs Initial Vital Signs: Vital Signs Temperature 97.2 F L 09/16/18 18:00 Pulse Rate 82 09/16/18 18:00 Respiratory Rate 18 09/16/18 18:00 Blood Pressure 181/96 H 09/16/18 18:00 Pulse Oximetry 96 09/16/18 18:00 Course Orders Ordered: ED Orders 09/16/18 18:25 Complete Blood Count AUTO DIFF Stat Comprehensive Metabolic Panel Stat Partial Thromboplastin Time Stat Prothrombin Time INR Stat Type and Screen Stat 09/16/18 18:30 GI Panel Stat Stool Culture Stat 09/16/18 19:03 CT abdomen pelvis w con Stat Discontinued Medications Hydromorphone HCl (Dilaudid) 2 mg IV NOW ONE Stop: 09/16/18 18:45 Last Admin: 09/16/18 18:48 Dose: 2 mg Hydromorphone HCl (Dilaudid) 2 mg IV NOW ONE Stop: 09/16/18 20:11 Last Admin: 09/16/18 20:17 Dose: 2 mg Hydromorphone HCl (Dilaudid) 2 mg IV NOW ONE Stop: 09/16/18 23:02 Last Admin: 09/16/18 23:03 Dose: 2 mg Sodium Chloride (Normal Saline 0.9%) 1,000 mls @ 1,000 mls/hr IV BOLUS ONE Stop: 09/16/18 21:15 Last Infusion: 09/16/18 21:32 Dose: 0 mls/hr Admin: 09/16/18 20:16 Dose: 1,000 mls/hr Ondansetron HCl (Zofran) 4 mg IV NOW ONE Stop: 09/16/18 18:16 Last Admin: 09/16/18 18:44 Dose: 4 mg Pantoprazole Sodium (Protonix) 40 mg IV NOW ONE Stop: 09/16/18 18:16 Last Admin: 09/16/18 18:44 Dose: 40 mg Consultations Consultation #1: consult with both radiology and gen. surgery whom agree CT ABD/ Pelvis with oral/IV contrast is appropriate, but we will wait 90 minutes rather than typical 45 minutes. Consultation #2: call to [facility] Colorectal surgery whom suggests that given benign vitals, labs and lack of abscess or other more ominous finding on CT that patient can follow up in outpatient setting. They recommend ABX and will reach out to him on wednesday for follow up Vital Signs - 8 hr 09/16/18 20:21 09/16/18 23:27 Pulse Rate 80 78 Respiratory Rate 12 18 Blood Pressure 131/71 Blood Pressure [Right Arm] 134/78 Pulse Oximetry 97 99 MDM - Abdominal Pain Differential Diagnosis Differential diagnosis: Likely abdominal pain, acute appendicitis, calculus of kidney, constipation, diverticulitis, gastroenteritis, pancreatitis and small bowel obstruction Medical Records Attestation: I reviewed the patient's medical records. Lab Data Attestation: I reviewed the patient's lab results. Result diagrams: 09/16/18 18:25 09/16/18 18:25 Lab Results 09/16/18 09/16/18 09/16/18 Range/Units 18:25 18:25 18:25 WBC 12.0 H (4.5-11.0) X10^3/uL RBC 4.86 (4.5-5.9) X10^6/uL Hgb 15.1 (13.5-17.5) g/dL Hct 45.3 (41-53) % MCV 93.2 (80-100) fL MCH 31.0 (26-34) PG MCHC 33.3 (30-36) % RDW 13.9 (11.6-14.8) % Plt Count 236 (150-400) X10^3/uL Neut % (Auto) 73.4 (50-75) % Lymph % (Auto) 15.7 L (25-40) % Gilmer % (Auto) 7.4 (3-14) % Eos % (Auto) 2.8 (2-4) % Baso % (Auto) 0.7 (0-2) % Neut # (Auto) 8800 H (1476-4627) /uL PT 12.8 H (10.1-12.7) SECONDS INR 1.2 (0.9-1.3) APTT 28 (26.4-36.2) SECONDS Sodium 141 (137-145) mmol/L Potassium 4.4 (3.4-5.1) mmol/L Chloride 103 (98-107) mmol/L Carbon Dioxide 26 (22-32) mmol/L BUN 9 (9-20) mg/dL Creatinine 0.60 L (0.66-1.25) mg/dL Estimated GFR > 60.0 (>60) mL/min BUN/Creatinine Ratio 15.0 (6-22) Glucose 109 H (70-100) mg/dL Calcium 8.9 (8.4-10.2) mg/dL Total Bilirubin 0.4 (0.2-1.3) mg/dL AST 19 (17-59) IU/L ALT 30 (21-72) IU/L Alkaline Phosphatase 94 (38-126) U/L Total Protein 7.8 (6.3-8.2) g/dL Albumin 4.1 (3.5-5.0) g/dL Globulin 3.7 (1.7-4.1) g/dL Albumin/Globulin Ratio 1.1 (1.0-2.8) Stool Aeromonas Cult (Not Detect) Stl C. cayetanensis PCR (Not Detect) Stool Rotavirus (PCR) (Not Detect) Stool Adenovirus (PCR) (Not Detect) Stool Astrovirus (PCR) (Not Detect) Stool Cryptosporidium PCR (Not Detect) Stl E.coli Shiga Tox PCR (Not Detect) St Sh/Enteroin Ecoli PCR (Not Detect) Stool E coli O157 PCR Stl Enterotoxigenic E PCR (Not Detect) Stool EPEC (PCR) (Not Detect) Stl E. histolytica PCR (Not Detect) Stool Giardia Lamblia PCR (Not Detect) Stool Sapovirus (PCR) (Not Detect) Stl P. shigelloides PCR (Not Detect) St Y.enterocolitica PCR (Not Detect) Stool Vibrio (PCR) (Not Detect) Stl Vibrio cholerae PCR (Not Detect) Stl Enteroaggr Ecoli PCR (Not Detect) Stl Norovirus GI/GII PCR (Not Detect) Campylobacter (PCR) (Not Detect) C. difficile Tox (PCR) (Not Detect) Salmonella (PCR) (Not Detect) Blood Type Antibody Screen 09/16/18 09/16/18 Range/Units 18:25 18:30 WBC (4.5-11.0) X10^3/uL RBC (4.5-5.9) X10^6/uL Hgb (13.5-17.5) g/dL Hct (41-53) % MCV (80-100) fL MCH (26-34) PG MCHC (30-36) % RDW (11.6-14.8) % Plt Count (150-400) X10^3/uL Neut % (Auto) (50-75) % Lymph % (Auto) (25-40) % Gilmer % (Auto) (3-14) % Eos % (Auto) (2-4) % Baso % (Auto) (0-2) % Neut # (Auto) (4203-6654) /uL PT (10.1-12.7) SECONDS INR (0.9-1.3) APTT (26.4-36.2) SECONDS Sodium (137-145) mmol/L Potassium (3.4-5.1) mmol/L Chloride (98-107) mmol/L Carbon Dioxide (22-32) mmol/L BUN (9-20) mg/dL Creatinine (0.66-1.25) mg/dL Estimated GFR (>60) mL/min BUN/Creatinine Ratio (6-22) Glucose (70-100) mg/dL Calcium (8.4-10.2) mg/dL Total Bilirubin (0.2-1.3) mg/dL AST (17-59) IU/L ALT (21-72) IU/L Alkaline Phosphatase (38-126) U/L Total Protein (6.3-8.2) g/dL Albumin (3.5-5.0) g/dL Globulin (1.7-4.1) g/dL Albumin/Globulin Ratio (1.0-2.8) Stool Aeromonas Cult Awaiting culture res (Not Detect) Stl C. cayetanensis PCR Not detected (Not Detect) Stool Rotavirus (PCR) Not detected (Not Detect) Stool Adenovirus (PCR) Not detected (Not Detect) Stool Astrovirus (PCR) Not detected (Not Detect) Stool Cryptosporidium PCR Not detected (Not Detect) Stl E.coli Shiga Tox PCR Not detected (Not Detect) St Sh/Enteroin Ecoli PCR Not detected (Not Detect) Stool E coli O157 PCR Not Reportable Stl Enterotoxigenic E PCR Not detected (Not Detect) Stool EPEC (PCR) Not detected (Not Detect) Stl E. histolytica PCR Not detected (Not Detect) Stool Giardia Lamblia PCR Not detected (Not Detect) Stool Sapovirus (PCR) Not detected (Not Detect) Stl P. shigelloides PCR Not detected (Not Detect) St Y.enterocolitica PCR Not detected (Not Detect) Stool Vibrio (PCR) Not detected (Not Detect) Stl Vibrio cholerae PCR Not detected (Not Detect) Stl Enteroaggr Ecoli PCR Not detected (Not Detect) Stl Norovirus GI/GII PCR Not detected (Not Detect) Campylobacter (PCR) Not detected (Not Detect) C. difficile Tox (PCR) Not detected (Not Detect) Salmonella (PCR) Not detected (Not Detect) Blood Type A Negative Antibody Screen Negative Imaging Data CT scan - abdomen: Radiologist's impression: Chart Viewer Diagnostics DATE TYPE STATUS AUTHOR Hx 09/16/18 19:03 Selena Poole 03/15/18 03:04 Vance Wan 03/15/18 02:31 Vance WanWillem bonilla A 53, M0 1965 DEP ER, ED - Main ED: R02 177.8cm 133.81kg BSA: 2.46m? BMI: 42.3kg/m? Abdominal Pain Search Chart NF - Not included in interaction checking No Known Drug Allergies ONSET 09/16/18 23:27 [place] [address] CT Scan Report Signed Patient: DelonWillem bonilla [facility]#: [id number] : 1965Acct:[id number] Age/Sex: 53 / MDate of Service: 09/16/18 Loc: ED Accession Number: [id number] Procedure: CT abdomen pelvis w con Ordering Provider: Yury Amato D.O. PROCEDURE: CT ABDOMEN PELVIS W CON INDICATIONS: severe LLQ pain, extensive surgical hx TECHNIQUE: After the administration of oral and intravenous contrast, 5 mm thick sections acquired from the diaphragms to the symphysis. 5 mm thick coronal and sagittal reformats were performed. For radiation dose reduction, the following was used: automated exposure control, adjustment of mA and/or kV according to patient size. COMPARISON: [facility], CT, CT ABDOMEN PELVIS W CON, 03/15/2018, 3:07. FINDINGS: Image quality: Excellent. ABDOMEN: Lung bases: Lung bases are clear. Heart size is normal. Solid organs: Liver is normal in size and enhancement. Gallbladder is within normal limits. Biliary system is non-dilated. Pancreas enhances normally. Spleen is normal in size and enhancement. No adrenal nodules. Kidneys are normal in size and enhancement, without hydronephrosis. Peritoneum and bowel: Stomach, small bowel, and colon loops are normal in caliber and wall thickness. Duodenal diverticulum is present, as before. The rectum is oversewn, and is contiguous with the urinary bladder down , as before. No free fluid or air. Nodes and vessels: No retroperitoneal or mesenteric adenopathy. Aorta and inferior vena cava are normal in caliber. Miscellaneous: Left anterior abdominal colostomy is present. There is a new small bowel containing parastomal hernia measuring 32 mm in width. There is a large anterior abdominal wall small bowel containing hernia measuring 23 cm , as before. increased periumbilical small bowel containing hernia measuring 12.4 cm. PELVIS: Genitourinary: The urinary bladder dome is contiguous with the rectal stump. Previously seen fluid collection within the urinary bladder dome has resolved. Fat stranding surrounding the urinary bladder dome has resolved. Miscellaneous: No inguinal hernias or adenopathy. Bones: No suspicious bony lesions. No vertebral body compression fractures. IMPRESSION: 1. 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 Previously seen inflammation in this region has resolved. 2. Multiple ventral abdominal wall bowel containing hernias, without evidence of associated bowel strangulation, nor obstruction.. Dictated by: Selena Poole M.D. on 09/16/2018 at 21:22 Approved by: Selean Poole M.D. on 09/16/2018 at 21:26 Discharge Plan Departure Patient Disposition: Home Clinical Impression: Wenden-vesical fistula Discharge Date/Time: 09/16/18 23:29 Interventions: ED Discharge Assessment Last Done: 09/16/18 23:27 Activity Restrictions/Additional Instructions: *You have been diagnosed with [ colovesicular fistula ] *What to do: *Take medications as directed: Your prescriptions have been electronically transmitted to the [facility] at your request *Follow up with the Colorectal Surgery Clinic at [facility] ([phone]), call for an appointment. Let them know you were seen in the Emergency Department and that we ask that you be seen in follow up *Return to ER if you should have any new, worsening or concerning symptoms , such as [worsening pain, fever, vomiting, increased drainage or other bothersome symptoms ] Prescriptions: New metronidazole [Flagyl] 500 mg tablet 500 mg PO QID 10 Days Qty: 40 RF: 0 ciprofloxacin HCl 500 mg tablet 500 mg PO Q12H Qty: 20 RF: 0 No Action trazodone 100 MG tablet 100 mg PO HS Qty: 0 RF: 0 ACETAMINOPHEN 650 mg PO Q6H Qty: 0 RF: 0 ibuprofen 800 MG tablet 800 mg PO TIDP PRNQty: 0 RF: 0 hydromorphone [Dilaudid] 2 MG tablet 6 mg PO Q4HP PRNQty: 0 RF: 0 penicillin V potassium 500 MG tablet 500 mg PO Q6H Qty: 0 RF: 0 oxycodone 5 MG tablet 5 mg PO Q3HP PRNQty: 0 RF: 0 benzocaine [Anbesol (benzocaine) Max Str] 20 % gel 1 oz PO PRN PRNQty: 0 RF: 0 [ORAJEL] PRN PRNQty: 0 RF: 0 hydromorphone [Dilaudid] 4 MG tablet 2 tab PO QIDP PRNQty: 40 RF: 0 clindamycin HCl [Cleocin HCl] 300 MG capsule 300 mg PO TID Qty: 30 RF: 0
[2018-09-16] MEDS: SODIUM CHLORIDE 0.9% 1,000 ML 1000 ML IV (20:16)
[2018-09-16 20:21] VITALS: BP 134/78; PULSE 80; RESP 12; O2SAT 97
[2018-09-16 20:23] LABS: Campylobacter Not Detected (Not Detect); Clostridium difficile toxin AB Not Detected (Not Detect); Enteroaggregative E.coli Not Detected (Not Detect); Enteropathogenic E.coli Not Detected (Not Detect); Enterotoxigenic E.coli It/st Not Detected (Not Detect); Plesiomonsa shigelloides Not Detected (Not Detect); Salmonella Not Detected (Not Detect); Vibrio Not Detected (Not Detect); Vibrio cholerae Not Detected (Not Detect); Yersinia enterocolitica Not Detected (Not Detect)
[2018-09-16 20:24] LABS: Adenovirus F 40/41 Not Detected (Not Detect); Astrovirus Not Detected (Not Detect); Cryptosporidium Not Detected (Not Detect); Cyclospora cayetanensis Not Detected (Not Detect); Entamoeba histolytica Not Detected (Not Detect); Giardia lamblia Not Detected (Not Detect); Norovirus GI/GII Not Detected (Not Detect); Rotavirus A Not Detected (Not Detect); Sapovirus Not Detected (Not Detect); Shiga-like toxin-prod E.coli Not Detected (Not Detect); Shigella/Enteroinvasive E.coli Not Detected (Not Detect)
[2018-09-16 23:27] VITALS: BP 131/71; PULSE 78; RESP 18; O2SAT 99
== END 2018-09-16 23:29 | disposition home or self-care (01) ==
PROVIDERS: Emergency Provider Emergency Medicine
DX: N32.1 Vesicointestinal fistula (principal)
CPT/HCPCS: 36591; 74177; 80053; 85025; 85610; 85730; 86850; 86900; 86901; 87045; 87507; 96361; 96374; 96375; 96376; 99283; 99285; C9113; J1170; J2405; Q9967

== ENCOUNTER → 2025-02-13 08:30 | Outpatient (CLI) | payer OTHER, SELFPAY | LOC: RESP 08:32 | PROVIDERS: Referring Provider Family Medicine; Visit Provider Family Medicine | DX: R06.00 Dyspnea, unspecified (principal); R94.2 Abnormal results of pulmonary function studies; Z86.16 Personal history of COVID-19 | CPT/HCPCS: 94060; 94726; 94729 ==

== ENCOUNTER → 2025-04-05 09:40 | Outpatient (CLI) | payer OTHER, SELFPAY ==
[2025-04-05 11:38] LABS: D Dimer 637 ng/ml (<500)
[2025-04-05 11:58] LABS: NT-proBNP (BNP-Adult 18+) < 20 pg/mL (<125)
== END ==
PROVIDERS: Referring Provider Internal Medicine Critical Care Medicine; Visit Provider Internal Medicine Critical Care Medicine
DX: R06.09 Other forms of dyspnea (principal)
CPT/HCPCS: 36415; 83880; 85379

== ENCOUNTER → 2025-04-12 13:22 | Outpatient (CLI) | payer OTHER, SELFPAY | LOC: RESP 13:23 | PROVIDERS: Referring Provider Internal Medicine Critical Care Medicine; Visit Provider Internal Medicine Critical Care Medicine | DX: R06.09 Other forms of dyspnea (principal); R94.2 Abnormal results of pulmonary function studies | CPT/HCPCS: 94010; 94618 ==

== ENCOUNTER → 2025-05-31 08:02 | Outpatient (CLI) | payer OTHER, SELFPAY ==
--- NOTE | 2025-05-31 08:04 | DI.ECHO.S_ITS ---
[facility] : : [address] : [facility] : : [place], : : [place] [address] : : Phone: [phone] Echocardiogram Report + + :Name: PETER MEDINA Study Date: 05/31/2025 Height: 70 in : :[facility] ReadingLocation: Weight: 330 lb: : Gender: Male BSA: 2.6 m2 : :: 1965 Age: 60 yrs : :Reason For Study: DYPSNEA ON EXERTION, ABNORMAL PFT : :Ordering Physician: ALIE, : :RYAN Performed By: Rito Rodriguez : :Referring: RYAN STRANGE : + + Interpretation Summary This is a technically difficult study enhanced with Definity echo contrast. Sinus tachycardia. Heart rate is 99-100 bpm. Normal LV size and moderately increased wall thickness. Normal wall motion and LV systolic function. Ejection fraction is 60-65%. Normal chamber sizes. No significant valvular abnormalities. No prior study available for comparison. Procedure: A two-dimensional transthoracic echocardiogram with color flow and Doppler was performed. A contrast injection of Definity was performed to improve assessment of LV function. The study quality was technically difficult. There is no prior echocardiogram noted for this patient. The patient was in normal sinus rhythm during the exam. Left Ventricle: The left ventricle is normal in size. Left ventricular wall thickness is mild-moderately increased. There is no ventricular septal defect visualized. The ejection fraction is estimated to be 60-65%. There are no focal wall motion abnormalities. Right Ventricle: The right ventricle is normal in size and function. Atria: The left atrial size is normal. Right atrial size is normal. There is no Doppler evidence for an interatrial shunt. Mitral Valve: The mitral valve is not well visualized. There is no mitral regurgitation noted. Aortic Valve: The aortic valve is trileaflet. The aortic valve opens well. No aortic regurgitation is present. Tricuspid Valve: The tricuspid valve is not well visualized. No tricuspid regurgitation. Pulmonic Valve: The pulmonic valve is not well visualized. There is no pulmonic valvular regurgitation. Great Vessels: The aortic root is mildly dilated. The dimensions of the ascending aorta are normal. The pulmonary is not well visualized. The inferior vena cava was not well visualized. Pericardium/ Pleura There is no pericardial effusion. There is no pleural effusion. MMode/2D Measurements & Calculations LVIDd: 3.4 cm AoV Openin.9 cm LVIDs: 2.1 cm LVOT diam: 2.1 cm IVSd: 1.4 cm Ao root diam: 3.7 cm LVPWd: 1.5 cm LV east. diameter/BSA (cm/m^2): 1.3 LV sys. diameter/BSA (cm/m^2): 0.81 FS: 39.0 % EPSS: 0.52 cm LA A2 area: 15.3 cm2 RA long axis: 5.1 cm LA A4 area: 21.4 cm2 RA area: 14.9 cm2 LA length (vol): 5.7 cm RA vol: 36.7 ml LA vol: 48.8 ml RA : 14.2 ml/m2 LA vol index: 18.9 ml/m2 RVD1 (basal): 3.5 cm RVD2 (mid): 2.9 cm TAPSE: 2.9 cm Doppler Measurements & Calculations Ao V2 max: 114.7 cm/sec LVOT Max Damir: 86.9 cm/sec Ao V2 mean: 87.6 cm/sec LV V1 max P.0 mmHg Ao V2 VTI: 19.0 cm LV V1 VTI: 17.6 cm Ao max P.3 mmHg Ao mean P.3 mmHg [place](I,D): 3.3 cm2 MV E max damir: 52.7 cm/sec [place](V,D): 2.7 cm2 MV A max damir: 69.3 cm/sec [place] indexed to BSA (cm^2/m^2): 1.3 MV E/A: 0.76 sev ratio: 0.93 Med Peak E' Damir: 6.9 cm/sec E/E' med: 7.6 Lat Peak E' Damir: 10.0 cm/sec E/E' lat: 5.2 E/e' average: 6.4 MV dec time: 0.10 sec PA V2 max: 121.1 cm/sec PA V2 mean: 87.7 cm/sec PA mean P.4 mmHg PA pr(Accel): 60.2 mmHg SV(LVOT): 62.7 ml Electronically signed by: Linh marie [place] Physician:05/31/2025 08:15 PM
--- NOTE | 2025-05-31 08:04 | DI.CT.S_ITS ---
PROCEDURE: CT CHEST HIGH RESOLUTION INDICATIONS: Severe dyspnea, eval for diaphragm abnormality or ILD TECHNIQUE: Noncontrast 1.0 and 5.0 mm thick contiguous axial sections from the pulmonary apex to the posterior costophrenic angles, with 7 mm thick coronal and sagittal MIP reformats. 1 mm thick dynamic expiratory images acquired through the upper, mid, and lower lungs. 1.0 mm thick axial sections acquired from the hugo to the posterior costophrenic angles in the prone end-inspiration position. For radiation dose reduction, the following was used: automated exposure control, adjustment of mA and/or kV according to patient size. COMPARISON: [facility], CT, CT CHEST WITHOUT CONTRAST, 03/21/2025, 11:52. FINDINGS: Image quality: Diagnostic. Lower Neck: No enlarged lymph nodes. Thyroid: No thyroid nodules which require sonographic follow up, per consensus guidelines. Axillae: No enlarged lymph nodes. Chest Wall: Unremarkable. Bones: No suspicious osseous lesion. Thoracic thecal leads. Lungs and Pleura: No pneumothorax or pleural effusions. No consolidation or suspicious nodules. Left lower lobe pulmonary nodule measuring 0.3 cm, (2/164). A few calcified granuloma. No honeycombing. No ground-glass opacity. No air trapping. Heart: Heart size is normal. No pericardial effusion. Thoracic Vessels: The aorta and pulmonary arteries demonstrate normal size. Mediastinum and Lorena: No enlarged lymph nodes. Diaphragm appears unchanged. There is mild asymmetric elevation or eventration of the right hemidiaphragm. Esophagus: No wall thickening. No hiatal hernia. Upper Abdomen: Visualized upper abdomen solid organs and bowel loops appear normal. Probable hepatic steatosis. IMPRESSION: 1. No acute airspace opacity. No pleural effusion. 2. No convincing interstitial lung disease. 3. No significant pulmonary nodules. Dictated by: Brooks Escobar M.D. on 05/31/2025 at 14:38 Approved by: Brooks Escobar M.D. on 05/31/2025 at 14:49
== END ==
PROVIDERS: Referring Provider Internal Medicine Critical Care Medicine; Visit Provider Internal Medicine Critical Care Medicine
DX: R94.2 Abnormal results of pulmonary function studies (principal); R06.09 Other forms of dyspnea; I77.89 Other specified disorders of arteries and arterioles
CPT/HCPCS: 71250; C8929; Q9957

== ENCOUNTER 2025-06-29 14:01 | Observation (INO) | payer OTHER, SELFPAY ==
[2025-06-29] VITALS (20 sets, daily range): BP systolic 125–168; BP diastolic 56–101; PULSE 85–97; RESP 16–20; TEMP 36.1–36.9; O2SAT 94–98; BMI 45.9; BMI 46.3
--- NOTE | 2025-06-29 14:51 | DI.CT.S_ITS ---
PROCEDURE: CT ABDOMEN PELVIS W CON INDICATIONS: abd pain TECHNIQUE: After the administration of intravenous contrast, axial sections acquired from the lung bases to the pubic symphysis. Coronal and sagittal reformats were performed. For radiation dose reduction, the following was used: automated exposure control, adjustment of mA and/or kV according to patient size. COMPARISON: [facility], CT, CT ABDOMEN PELVIS WITH CONTRAST, 10/08/2023, 10:49. FINDINGS: Image quality: Diagnostic Lower chest: Unremarkable lung bases. Normal heart size. Liver: Unremarkable Gallbladder and biliary system: Distended gallbladder. No radiopaque stones. No biliary ductal dilation. Pancreas: No ductal dilation. [id number] parenchymal atrophy. Spleen: Prominent at 13 cm Adrenals: No discrete nodules Kidneys: Subcentimeter right lesion is too small to characterize, usually cysts. 1.2 x 0.6 cm conglomerate left lower pole nonobstructing calculi. Left lower pole simple appearing cyst is seen at the posterior cortex. No hydronephrosis. No obstructing stone. There is possible slightly decreased enhancement of the left kidney compared to the right. Vessels and lymph nodes: Main portal vein appears patent. No abdominal aortic aneurysm. No enlarged lymph nodes by size criteria. Bowel and peritoneum: No bowel obstruction. No drainable ascites or abscess. Left lower quadrant colostomy. Trista's pouch. Body wall: Large ventral hernia containing most of the peritoneal contents. Colonic diverticula. Please note not all of the bowel is visualized in the left lower quadrant. Pelvis: Under distended urinary bladder. This is not well assessed. Prostate shows heterogeneous enhancement, also not well assessed on CT Small fat containing right inguinal hernia. Bones: There are degenerative osseous changes. No aggressive appearing osseous abnormality. Left back intrathecal device is partially seen. IMPRESSION: Conglomerate of nonobstructing calculi in the left lower pole, in aggregate measuring 1.2 cm. No obstructing calcified stone is seen, however there is delayed enhancement of the left kidney, which could be due to recently passed stone versus infection. Correlate urinalysis. Distended gallbladder. Correlate with any right upper quadrant symptoms. No radiopaque gallstones. Large ventral hernia containing most of the peritoneal contents. No bowel obstruction. Other findings above. Dictated by: Bubba Valdes M.D. on 06/29/2025 at 16:44 Approved by: Bubba Valdes M.D. on 06/29/2025 at 16:50
[2025-06-29 14:58] LABS: Add Manual Diff / Slide Review NO; Hematocrit 39.7 % (41-53); Hemoglobin 13.7 g/dL (13.5-17.5); Lymphocytes Absolute Auto 1800 /uL (1100-4500); Mean Corpuscular HGB Conc 34.6 % (30-36); Mean Corpuscular Hemoglobin 31.9 PG (26-34); Mean Corpuscular Volume 92.3 fL (80-100); Platelet Count 265 X10^3/uL (150-400)
[2025-06-29 15:16] LABS: Alanine Aminotransferase 26 IU/L (<50); Albumin 3.9 g/dL (3.5-5.0); Albumin Globulin Ratio 0.9 (1.0-2.8); Alkaline Phosphatase 77 U/L (38-126); Blood Urea Nitrogen 13 mg/dL (9-20); Calcium 9.4 mg/dL (8.4-10.2); Carbon Dioxide 21 mmol/L (22-32); Chloride 104 mmol/L (98-107); Estimated Glomerular Filt Rate > 60 mL/min (>60); Globulin 4.3 g/dL (1.7-4.1); Glucose 118 mg/dL (70-99); HEMOLYSIS < 15 (0-50); Lipase 108 U/L (23-300); Potassium 4.2 mmol/L (3.4-5.1); Sodium 134 mmol/L (137-145); Total Protein 8.2 g/dL (6.3-8.2)
[2025-06-29] MEDS: LACTATED RINGERS 1,000 ML 1000 ML IV (15:49)
--- NOTE | 2025-06-29 16:25 | ED.ABDPAIN ---
HPI - Abdominal Pain General Chief Complaint: Abdominal Pain Stated Complaint: possible infected kidney stone sent pcp fever wk Time Seen by Provider: 06/29/25 14:51 Mode of arrival: Ambulatory History of Present Illness HPI narrative: 60-year-old gentleman history of morbid obesity on Wegovy, colostomy, bladder fistula, currently on Macrobid for chronic UTI presents with intermittent fevers over the last few 1-2 weeks along with left kidney flank pain. He was advised to come to the ER for further evaluation by the PCP. Patient denies chest pain, shortness of breath, cough, nausea, vomiting, diarrhea. Other than what is stated 14 point review of systems negative. Related Data Home Medications ?Medication ?Instructions ?Recorded ?Confirmed trazodone 100 mg tablet 100 mg PO HS ##0 11/17/11 04/05/25 ACETAMINOPHEN 650 mg PO Q6H ##0 03/08/17 04/05/25 hydromorphone 2 mg tablet 6 mg PO Q4HP PRN ##0 03/08/17 04/05/25 (Dilaudid) ibuprofen 800 mg tablet 800 mg PO TIDP PRN ##0 03/08/17 04/05/25 [ORAJEL] PRN PRN ##0 06/11/17 04/05/25 benzocaine 20 % mucosal gel 1 oz PO PRN PRN ##0 06/11/17 04/05/25 (Anbesol (benzocaine) Maximum Strength) oxycodone 5 mg tablet 5 mg PO Q3HP PRN ##0 06/11/17 04/05/25 penicillin V potassium 500 mg 500 mg PO Q6H ##0 06/11/17 04/05/25 tablet Previous Rx's ?Medication ?Instructions ?Recorded clindamycin HCl 300 mg capsule 300 mg PO TID #30 caps 06/11/17 (Cleocin HCl) hydromorphone 4 mg tablet 2 tab PO QIDP PRN #40 tabs 06/11/17 (Dilaudid) ciprofloxacin HCl 500 mg tablet 500 mg PO Q12H #20 tabs 09/16/18 Allergies Allergy/AdvReac Type Severity Reaction Status Date / Time No Known Drug Allergies Allergy Verified 06/29/25 14:20 Review of Systems Review of Systems ROS Unobtainable: All systems reviewed & are unremarkable except as noted in HPI and below Patient History Social History Smoking Status: Never smoker Smoking Status: Never smoker alcohol intake frequency: 0-2 drinks per day Exam Narrative Exam Narrative: GENERAL: [60] year old patient appears stated age. Well-developed patient, in mild distress. HEAD: Atraumatic. Normocephalic. EYES: Pupils equal round and reactive. Extraocular motions intact. No scleral icterus. No injection or drainage. ENT: Nose without bleeding, purulent drainage. Throat without erythema, tonsillar hypertrophy or exudate. Airway patent. NECK: Trachea midline. Non tender CARDIOVASCULAR: Regular rate and rhythm without murmurs, gallops, or rubs. RESPIRATORY: Clear to auscultation. Breath sounds equal bilaterally. No wheezes, rales, or rhonchi. GASTROINTESTINAL: Abdomen soft, non-tender, nondistended. EXTREMITIES: No edema or joint tenderness. BACK: Nontender without deformity or crepitance. No flank tenderness. NEURO: AOx3. SKIN: No rash or erythema of visible areas Initial Vital Signs Initial Vital Signs: Vital Signs Temperature 98.5 F 06/29/25 14:19 Pulse Rate 89 06/29/25 14:19 Respiratory Rate 20 06/29/25 14:19 Blood Pressure 158/86 H 06/29/25 14:19 Pulse Oximetry 96 06/29/25 14:19 Oxygen Delivery Method Room Air 06/29/25 14:19 Course Orders Ordered: ED Orders 06/29/25 14:28 Complete Blood Count AUTO DIFF Stat Comprehensive Metabolic Panel Stat Lipase Stat EKG-12 Lead Stat 06/29/25 14:51 CT abdomen pelvis w con Stat Ondansetron HCl (Ondansetron 4 Mg/2 Ml Inj) 4 mg IV NOW PRN PRN Reason: Nausea And Vomiting Ondansetron HCl (Ondansetron 4 Mg Odt) 4 mg PO NOW PRN PRN Reason: Nausea And Vomiting Discontinued Medications Lactated Ringer's (Lactated Ringers) 1,000 mls @ 1,000 mls/hr IV BOLUS ONE Stop: 06/29/25 15:51 Last Admin: 06/29/25 15:49 Dose: 1,000 mls/hr Documented By: EMILY Vital Signs Vital signs: Vital Signs - 8 hr 06/29/25 14:19 06/29/25 15:44 06/29/25 15:46 Temperature 98.5 F Pulse Rate 89 87 85 Respiratory Rate 20 Blood Pressure 158/86 H Pulse Oximetry 96 97 97 Oxygen Delivery Method Room Air 06/29/25 15:46 06/29/25 16:00 06/29/25 16:01 Temperature Pulse Rate 92 H Respiratory Rate Blood Pressure 167/101 H 167/82 H Pulse Oximetry 98 Oxygen Delivery Method 06/29/25 16:01 Temperature Pulse Rate 92 H Respiratory Rate Blood Pressure Pulse Oximetry 98 Oxygen Delivery Method MDM - Abdominal Pain Lab Data 06/29/25 14:28 06/29/25 14:28 Labs: Lab Results 06/29/25 Range/Units 14:28 WBC 16.6 H (4.5-11.0) X10^3/uL RBC 4.30 L (4.5-5.9) X10^6/uL Hgb 13.7 (13.5-17.5) g/dL Hct 39.7 L (41-53) % MCV 92.3 (80-100) fL MCH 31.9 (26-34) PG MCHC 34.6 (30-36) % RDW 13.6 (11.6-14.8) % Plt Count 265 (150-400) X10^3/uL Neut % (Auto) 77.8 H (50-75) % Lymph % (Auto) 11.1 L (25-40) % [place] % (Auto) 7.5 (3-14) % Eos % (Auto) 2.8 (2-4) % Baso % (Auto) 0.8 (0-2) % Neut # (Auto) 53971 H (8384-2712) /uL Lymph # (Auto) 1800 (8419-3354) /uL [place] # (Auto) 1200 H (0-900) /uL Eos # (Auto) 500 H (0-450) /uL Baso # (Auto) 100 (0-100) /uL Sodium 134 L (137-145) mmol/L Potassium 4.2 (3.4-5.1) mmol/L Chloride 104 (98-107) mmol/L Carbon Dioxide 21 L (22-32) mmol/L BUN 13 (9-20) mg/dL Creatinine 0.60 L (0.66-1.25) mg/dL Estimated GFR > 60 (>60) mL/min BUN/Creatinine Ratio 21.7 (6-22) Glucose 118 H (70-99) mg/dL Calcium 9.4 (8.4-10.2) mg/dL Total Bilirubin 0.7 (0.2-1.3) mg/dL AST 27 (17-59) IU/L ALT 26 (<50) IU/L Alkaline Phosphatase 77 (38-126) U/L Total Protein 8.2 (6.3-8.2) g/dL Albumin 3.9 (3.5-5.0) g/dL Globulin 4.3 H (1.7-4.1) g/dL Albumin/Globulin Ratio 0.9 L (1.0-2.8) Lipase 108 (23-300) U/L Imaging Data CT scan - abdomen/pelvis: Radiologist's Impression: [address] [address] [address] Scan Report Signed Patient: Willem Jernigan MR#: [id number] : 1965 Acct:[id number] Age/Sex: 60 / M Date of Service: 06/29/25 Loc: ED Accession Number: [id number] Procedure: CT abdomen pelvis w con Ordering Provider: Norbert Ballesteros D.O. PROCEDURE: CT ABDOMEN PELVIS W CON INDICATIONS: abd pain TECHNIQUE: After the administration of intravenous contrast, axial sections acquired from the lung bases to the pubic symphysis. Coronal and sagittal reformats were performed. For radiation dose reduction, the following was used: automated exposure control, adjustment of mA and/or kV according to patient size. COMPARISON: [facility], CT, CT ABDOMEN PELVIS WITH CONTRAST, 10/08/2023, 10:49. FINDINGS: Image quality: Diagnostic Lower chest: Unremarkable lung bases. Normal heart size. Liver: Unremarkable Gallbladder and biliary system: Distended gallbladder. No radiopaque stones. No biliary ductal dilation. Pancreas: No ductal dilation. [id number] parenchymal atrophy. Spleen: Prominent at 13 cm Adrenals: No discrete nodules Kidneys: Subcentimeter right lesion is too small to characterize, usually cysts. 1.2 x 0.6 cm conglomerate left lower pole nonobstructing calculi. Left lower pole simple appearing cyst is seen at the posterior cortex. No hydronephrosis. No obstructing stone. There is possible slightly decreased enhancement of the left kidney compared to the right. Vessels and lymph nodes: Main portal vein appears patent. No abdominal aortic aneurysm. No enlarged lymph nodes by size criteria. Bowel and peritoneum: No bowel obstruction. No drainable ascites or abscess. Left lower quadrant colostomy. Trista's pouch. Body wall: Large ventral hernia containing most of the peritoneal contents. Colonic diverticula. Please note not all of the bowel is visualized in the left lower quadrant. Pelvis: Under distended urinary bladder. This is not well assessed. Prostate shows heterogeneous enhancement, also not well assessed on CT Small fat containing right inguinal hernia. Bones: There are degenerative osseous changes. No aggressive appearing osseous abnormality. Left back intrathecal device is partially seen. IMPRESSION: Conglomerate of nonobstructing calculi in the left lower pole, in aggregate measuring 1.2 cm. No obstructing calcified stone is seen, however there is delayed enhancement of the left kidney, which could be due to recently passed stone versus infection. Correlate urinalysis. Distended gallbladder. Correlate with any right upper quadrant symptoms. No radiopaque gallstones. Large ventral hernia containing most of the peritoneal contents. No bowel obstruction. Other findings above. MDM Narrative Medical decision making narrative: All lab work, vital signs, nurse triage note, medication list, previous ER visits, and all imaging studies reviewed. WBC 16.6. CT showed conglomerate of nonobstructing calculi in the left lower pole in aggregate measuring 1.2 cm. No obstructing calcified stone is seen, however there is delayed enhancement of the left kidney which could be due to recently passed stone versus infection. Distended gallbladder. Large ventral hernia containing mostly of the peritoneal contents. No bowel obstruction. Patient given fluids and Rocephin 2 g IV x1 here. Case discussed with Dr. Baca who has graciously accepted the patient for inpatient admission. Differential diagnosis UTI, sepsis, kidney stone, kidney abscess, kidney infection, diverticulitis. Discharge Plan Departure Patient Disposition: Admitted as Observation Clinical Impression: Infection of kidney Admit Date/Time: 06/29/25 17:20 Admit Provider: Noah Baca V
--- NOTE | 2025-06-29 16:36 | EKG_ITS ---
[address] [address] Test Date: 2025-06-29 Pat Name: Willem Jernigan Department: 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
[2025-06-29 17:05] LABS: Appearance Urine UA CLOUDY; Bilirubin Urine UA NEGATIVE (NEGATIVE); Glucose Urine UA NEGATIVE (Negative); Ketones Urine UA NEGATIVE (NEGATIVE); Leukocyte Esterase Urine UA 2+ (NEGATIVE); Nitrite Urine UA POSITIVE (Negative); Occult Blood Urine UA 2+ (Negative); Protein Urine UA 1+ (Negative); Specific Gravity Urine UA 1.020 (1.000-1.035); Urobilinogen Urine UA 0.2 E.U./dL (0.2); pH Urine UA 6.0 (4.5-8.0)
[2025-06-29 17:06] LABS: Color Urine UA Dark Yellow
[2025-06-29 17:13] LABS: Culture Indicated Urine Specimen Cultured
[2025-06-29] MEDS: cefTRIAXone 2,000 MG in SODIUM CHLORIDE 0.9% 100 ML 200 MG IV (17:24)
--- NOTE | 2025-06-29 17:40 | PM.HP.IH.1 ---
History of Present Illness History of Present Illness Date Patient Seen: 06/29/25 Time Patient Seen: 18:15 Chief complaint: possible infected kidney stone sent pcp fever wk Narrative: ER notes: 60-year-old gentleman history of morbid obesity on Wegovy, colostomy, bladder fistula, currently on Macrobid for chronic UTI presents with intermittent fevers over the last few 1-2 weeks along with left kidney flank pain. He was advised to come to the ER for further evaluation by the PCP. Patient denies chest pain, shortness of breath, cough, nausea, vomiting, diarrhea. Other than what is stated 14 point review of systems negative. Additional history: The patient has a history of colostomy in 2017 complicating a diverticular abscess, and subsequent development of a bladder fistula. He has been on Macrobid for the past 4-5 months. In the last month he is felt intermittent chills and in the last week developed left kidney flank pain. He has chronically shoemaker colored urine he feels is related to his bladder fistula. He has lost 50 lb in the last 2.5 months on Wegovy in anticipation of colostomy takedown surgery. [facility] Social History Smoking Status: Never smoker Meds Home Medications and Allergies Home Medications ?Medication ?Instructions ?Recorded ?Confirmed ?Type trazodone 100 mg tablet 100 mg PO HS ##0 11/17/11 04/05/25 History ACETAMINOPHEN 650 mg PO Q6H ##0 03/08/17 04/05/25 History hydromorphone 2 mg tablet 6 mg PO Q4HP PRN ##0 03/08/17 04/05/25 History (Dilaudid) ibuprofen 800 mg tablet 800 mg PO TIDP PRN ##0 03/08/17 04/05/25 History [ORAJEL] PRN PRN ##0 06/11/17 04/05/25 History benzocaine 20 % mucosal gel 1 oz PO PRN PRN ##0 06/11/17 04/05/25 History (Anbesol (benzocaine) Maximum Strength) clindamycin HCl 300 mg capsule 300 mg PO TID #30 caps 06/11/17 04/05/25 Rx (Cleocin HCl) hydromorphone 4 mg tablet 2 tab PO QIDP PRN #40 tabs 06/11/17 04/05/25 Rx (Dilaudid) oxycodone 5 mg tablet 5 mg PO Q3HP PRN ##0 06/11/17 04/05/25 History penicillin V potassium 500 mg 500 mg PO Q6H ##0 06/11/17 04/05/25 History tablet ciprofloxacin HCl 500 mg tablet 500 mg PO Q12H #20 tabs 09/16/18 04/05/25 Rx Allergies Allergy/AdvReac Type Severity Reaction Status Date / Time No Known Drug Allergies Allergy Verified 06/29/25 14:20 Review of Systems Review of Systems ROS: Yes All systems reviewed with the patient and are negative except as otherwise documented Exam Vital Signs (past 8 hours): - 06/29/25 14:19 06/29/25 15:44 06/29/25 15:46 Temperature 98.5 F Pulse Rate 89 87 85 Respiratory Rate 20 Blood Pressure 158/86 H Pulse Oximetry 96 97 97 Oxygen Delivery Method Room Air 06/29/25 15:46 06/29/25 16:00 06/29/25 16:01 Temperature Pulse Rate 92 H Respiratory Rate Blood Pressure 167/101 H 167/82 H Pulse Oximetry 98 Oxygen Delivery Method 06/29/25 16:01 06/29/25 16:09 06/29/25 16:09 Temperature Pulse Rate 92 H 92 H Respiratory Rate Blood Pressure 157/80 H Pulse Oximetry 98 96 Oxygen Delivery Method 06/29/25 16:30 06/29/25 16:30 Temperature Pulse Rate 90 Respiratory Rate 16 Blood Pressure 160/82 H Pulse Oximetry 97 Oxygen Delivery Method Oxygen Delivery Method Room Air Objective ECG Impression: Normal sinus rhythm at 88bpm Imaging *: My impression: Abdomen-pelvis CT 06/29/2025: Conglomerate of nonobstructing calculi in the left lower pole, in aggregate measuring 1.2 cm. No obstructing calcified stone is seen, however there is delayed enhancement of the left kidney, which could be due to recently passed stone versus infection. Correlate urinalysis. Distended gallbladder. Correlate with any right upper quadrant symptoms. No radiopaque gallstones. Large ventral hernia containing most of the peritoneal contents. No bowel obstruction. Other findings above. Labs 06/29/25 14:28 06/29/25 14:28 Labs: Laboratory Results - last 24 hr 06/29/25 14:28 WBC 16.6 H RBC 4.30 L Hgb 13.7 Hct 39.7 L MCV 92.3 MCH 31.9 MCHC 34.6 RDW 13.6 Plt Count 265 Neut % (Auto) 77.8 H Lymph % (Auto) 11.1 L [place] % (Auto) 7.5 Eos % (Auto) 2.8 Baso % (Auto) 0.8 Neut # (Auto) 35084 H Lymph # (Auto) 1800 [place] # (Auto) 1200 H Eos # (Auto) 500 H Baso # (Auto) 100 Sodium 134 L Potassium 4.2 Chloride 104 Carbon Dioxide 21 L BUN 13 Creatinine 0.60 L Estimated GFR > 60 BUN/Creatinine Ratio 21.7 Glucose 118 H Calcium 9.4 Total Bilirubin 0.7 AST 27 ALT 26 Alkaline Phosphatase 77 Total Protein 8.2 Albumin 3.9 Globulin 4.3 H Albumin/Globulin Ratio 0.9 L Lipase 108 Urine Color Dark yellow Urine Appearance Cloudy Urine pH 6.0 Ur Specific [place] 1.020 Urine Protein 1+ H Urine Glucose (UA) Negative Urine Ketones Negative Urine Occult Blood 2+ H Urine Nitrate Positive H Urine Bilirubin Negative Urine Urobilinogen 0.2 Ur Leukocyte Esterase 2+ H Urine RBC 1-5/hpf Urine WBC 30-100/hpf H Ur Squamous Epith Cells 0-1 /hpf Urine Bacteria Many (>30) H Ur Culture Indicated? Specimen cultured Vol Urine Centrifuged 10ml (spun) Assessment & Plan Assessment & Plan narrative: 1. Left pyelonephritis, likely due to chronic fecal contamination of urine, can not rule out contributing left nephrolithiasis with chronic bacterial seeding. treat with IV ceftriaxone and follow cultures and clinical status. 2. History of diverticular abscess, status post colostomy, complicated by rectovesical fistula. 3. Leukocytosis due to 1. 4. Severe obesity. Plan: - admit to observation - ceftriaxone 1 g IV Q 24 - monitor cultures - possible discharge home tomorrow if doing well DVT prophylaxis: Subcutaneous enoxaparin Code status: Full code. His is his surrogate decision maker IH PROFEE Parking Enforcement Manager Document charge(s): No Charge Codes Initial inpatient/observation care: [id number]
--- NOTE | 2025-06-29 18:41 | CM.IDA ---
Initial DCP Assessment Note Patient is 60 y/o male who presents to the ED due to concern for kidney stones, recommended by PCP to seek medical treatment. Patient admitted OBS due to concern for Kidney Infection. Patient's PCP is at the [facility], Patient has [employer] insurance. 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 Patient presents as pleasant, A/Ox4. Patient endorses he is independent with ADLs, resides in [place] with spouse. Patient denies any needs upon d/c and endorses preference to d/c to home upon medical clearance. Plan: Patient admitted for further evaluation and treatment, DCP to f/u with POC, no DCP needs at this time, plan to d/c to home upon medical clearance with spouse. CHERI Fritz Discharge Planning/Care Management CM Discharge Assessment Start: 06/29/25 18:37 Freq: Status: Active Protocol: Document 06/29/25 18:38 LN (Rec: 06/29/25 18:40 LN [id number]) Discharge Planning Assessment Assigned Discharge CHERI Cuevas Garment Supervisor Provider [facility] Insurance [employer] Advance Directives? Yes Advance Directives No on File History Provided By Patient,Family Member,Medical Record Prior Living House Arrangements Household Members spouse Type of Drives own vehicle transporation used prior to admit Independent with ADL Yes 's Is patient alert and Yes oriented? Barriers to No Discharge Discharge Plan Home
[2025-06-30] VITALS (11 sets, daily range): BP systolic 107–130; BP diastolic 56–74; PULSE 67–99; RESP 17–22; TEMP 35.7–37.8; O2SAT 94–96
[2025-06-30] MEDS: IBUPROFEN 400 MG TABLET 800 MG PO ×2 (02:09→16:18)
[2025-06-30 05:40] LABS: Add Manual Diff / Slide Review NO; Hematocrit 39.4 % (41-53); Hemoglobin 13.6 g/dL (13.5-17.5); Lymphocytes Absolute Auto 2900 /uL (1100-4500); Mean Corpuscular HGB Conc 34.5 % (30-36); Mean Corpuscular Hemoglobin 31.8 PG (26-34); Mean Corpuscular Volume 92.3 fL (80-100); Platelet Count 289 X10^3/uL (150-400)
[2025-06-30 05:44] LABS: Blood Urea Nitrogen 14 mg/dL (9-20); Calcium 9.2 mg/dL (8.4-10.2); Carbon Dioxide 21 mmol/L (22-32); Chloride 103 mmol/L (98-107); Estimated Glomerular Filt Rate > 60 mL/min (>60); Glucose 128 mg/dL (70-99); HEMOLYSIS < 15 (0-50); Potassium 4.3 mmol/L (3.4-5.1); Sodium 136 mmol/L (137-145)
[2025-06-30] MEDS: METOPROLOL ER 50 MG TABLET PO (09:12)
[2025-06-30] MEDS: LEVOTHYROXINE 100 MCG TABLET 225 MCG PO (09:14)
[2025-06-30 09:17] LABS: Lactate (Lactic Acid) 1.9 mmol/L (0.7-2.1)
[2025-06-30 09:35] LABS: Procalcitonin 0.097 ng/mL (<0.5)
--- NOTE | 2025-06-30 11:40 | P.PN_ITS ---
Subjective Subjective Date Patient Seen: 06/30/25 Time Patient Seen: 07:53 Interval history: HPI: 60-year-old gentleman history of morbid obesity on Wegovy, colostomy, bladder fistula, currently on Macrobid for chronic UTI presents with intermittent fevers over the last few 1-2 weeks along with left kidney flank pain. He was advised to come to the ER for further evaluation by the PCP. Patient denies chest pain, shortness of breath, cough, nausea, vomiting, diarrhea. Other than what is stated 14 point review of systems negative. The patient has a history of colostomy in 2017 complicating a diverticular abscess, and subsequent development of a bladder fistula. He has been on Macrobid for the past 4-5 months. In the last month he is felt intermittent chills and in the last week developed left kidney flank pain. He has chronically shoemaker colored urine he feels is related to his bladder fistula. He has lost 50 lb in the last 2.5 months on Wegovy in anticipation of colostomy takedown surgery. Interval history: 06/30: the patient reports pain is improved in the left flank, though he had transient pain in the left lower quadrant that remind him of prior episodes of diverticulitis this morning. This has resolved. Exam Vital Signs (past 8 hours): - 06/30/25 07:00 06/30/25 09:12 06/30/25 09:13 Temperature 96.3 F L Pulse Rate 94 H 69 69 Respiratory Rate 18 Blood Pressure 120/56 L 127/74 127/74 Pulse Oximetry 95 06/30/25 09:45 Temperature Pulse Rate 67 Respiratory Rate Blood Pressure 118/60 Pulse Oximetry Oxygen Delivery Method Room Air Oxygen Flow Rate 0 Narrative Exam Narrative: GENERAL: This is a pleasant obese male patient, in no apparent distress. HEAD: Atraumatic. Normocephalic. No temporal or scalp tenderness. EYES: Pupils equal round and reactive. Extraocular motions intact. No scleral icterus. No injection or drainage. ENT: Mucous membranes pink and moist. NECK: Trachea midline. No JVD, bruits or lymphadenopathy. Supple, nontender, no meningeal signs. CARDIOVASCULAR: Regular rate and rhythm without murmurs, gallops, or rubs. RESPIRATORY: Clear to auscultation. GASTROINTESTINAL: Abdomen soft, obese, LLQ coloscopy in place. EXTREMITIES: No clubbing, cyanosis, or edema. BACK: Right flank CVA tenderness. NEUROLOGIC: Alert, oriented, speech fluent, full upper and lower motor strength, no focal deficits evident. DERMATOLOGIC: No rashes or skin lesions. Objective ECG Impression: EKG 06/29/2025: Normal sinus rhythm at 88bpm Imaging *: My impression: Abdomen-pelvis CT 06/29/2025: Conglomerate of nonobstructing calculi in the left lower pole, in aggregate measuring 1.2 cm. No obstructing calcified stone is seen, however there is delayed enhancement of the left kidney, which could be due to recently passed stone versus infection. Correlate urinalysis. Distended gallbladder. Correlate with any right upper quadrant symptoms. No radiopaque gallstones. Large ventral hernia containing most of the peritoneal contents. No bowel obstruction. Other findings above. Labs 06/30/25 04:38 06/30/25 04:38 Labs: Laboratory Results - last 24 hr 06/29/25 06/30/25 06/30/25 14:28 04:38 08:45 WBC 16.6 H 19.1 H RBC 4.30 L 4.27 L Hgb 13.7 13.6 Hct 39.7 L 39.4 L MCV 92.3 92.3 MCH 31.9 31.8 MCHC 34.6 34.5 RDW 13.6 13.6 Plt Count 265 289 Neut % (Auto) 77.8 H 72.8 Lymph % (Auto) 11.1 L 15.1 L [place] % (Auto) 7.5 8.5 Eos % (Auto) 2.8 2.8 Baso % (Auto) 0.8 0.8 Neut # (Auto) 44499 H 57728 H Lymph # (Auto) 1800 2900 [place] # (Auto) 1200 H 1600 H Eos # (Auto) 500 H 500 H Baso # (Auto) 100 100 Sodium 134 L 136 L Potassium 4.2 4.3 Chloride 104 103 Carbon Dioxide 21 L 21 L BUN 13 14 Creatinine 0.60 L 0.66 Estimated GFR > 60 > 60 BUN/Creatinine Ratio 21.7 21.2 Glucose 118 H 128 H Lactate 1.9 Calcium 9.4 9.2 Total Bilirubin 0.7 AST 27 ALT 26 Alkaline Phosphatase 77 Total Protein 8.2 Albumin 3.9 Globulin 4.3 H Albumin/Globulin Ratio 0.9 L Lipase 108 Procalcitonin 0.097 Urine Color Dark yellow Urine Appearance Cloudy Urine pH 6.0 Ur Specific [place] 1.020 Urine Protein 1+ H Urine Glucose (UA) Negative Urine Ketones Negative Urine Occult Blood 2+ H Urine Nitrate Positive H Urine Bilirubin Negative Urine Urobilinogen 0.2 Ur Leukocyte Esterase 2+ H Urine RBC 1-5/hpf Urine WBC 30-100/hpf H Ur Squamous Epith Cells 0-1 /hpf Urine Bacteria Many (>30) H Ur Culture Indicated? Specimen cultured Vol Urine Centrifuged 10ml (spun) [facility] Social History household members: spouse Smoking Status: Never smoker alcohol intake: former Assessment & Plan Assessment & Plan narrative: 1. Left pyelonephritis due to gram negative bacilli, culture pending, likely due to chronic fecal contamination of urine, can not rule out contributing left nephrolithiasis with chronic bacterial seeding. treat with IV ceftriaxone and follow cultures and clinical status. 2. History of diverticular abscess, status post colostomy, complicated by rectovesical fistula. 3. Leukocytosis due to 1. Increased today. Monitor. 4. Chronic pain, on hydromorphone 20mg daily. 5. Severe obesity. Plan: - admitted to observation - continue ceftriaxone 1 g IV Q 24 - monitor cultures and WBC - pain control - possible discharge home tomorrow if doing well DVT prophylaxis: Subcutaneous enoxaparin Code status: Full code. His is his surrogate decision maker Quality VTE Deep Vein Thrombosis/Pulmonary Embolism Present on Admission: No IH PROFEE Pneumatic Tube Repairer Document charge(s): No Charge Codes Subsequent inpatient/observation care: [id number]
[2025-06-30] MEDS: ACETAMINOPHEN 325 MG TABLET 650 MG PO (16:18)
[2025-06-30 18:53] LABS: Add Manual Diff / Slide Review NO
[2025-06-30 19:05] LABS: Alanine Aminotransferase 25 IU/L (<50); Albumin 3.8 g/dL (3.5-5.0); Albumin Globulin Ratio 1.0 (1.0-2.8); Alkaline Phosphatase 71 U/L (38-126); Blood Urea Nitrogen 21 mg/dL (9-20); Calcium 8.9 mg/dL (8.4-10.2); Carbon Dioxide 26 mmol/L (22-32); Chloride 104 mmol/L (98-107); Estimated Glomerular Filt Rate > 60 mL/min (>60); Globulin 4.0 g/dL (1.7-4.1); Glucose 148 mg/dL (70-99); HEMOLYSIS < 15 (0-50); Potassium 4.5 mmol/L (3.4-5.1); Sodium 138 mmol/L (137-145); Total Protein 7.8 g/dL (6.3-8.2)
[2025-07-01] VITALS: BP 108/47; PULSE 82; RESP 18; O2SAT 94
[2025-07-01 04:00] VITALS: BP 107/60; PULSE 83; RESP 16; TEMP 35.6; O2SAT 96
[2025-07-01 05:36] LABS: Add Manual Diff / Slide Review NO; Hematocrit 36.6 % (41-53); Hemoglobin 12.3 g/dL (13.5-17.5); Lymphocytes Absolute Auto 2700 /uL (1100-4500); Mean Corpuscular HGB Conc 33.7 % (30-36); Mean Corpuscular Hemoglobin 31.5 PG (26-34); Mean Corpuscular Volume 93.4 fL (80-100); Platelet Count 275 X10^3/uL (150-400)
[2025-07-01] MEDS: LEVOTHYROXINE 100 MCG TABLET 225 MCG PO (05:37)
[2025-07-01 05:56] LABS: Blood Urea Nitrogen 22 mg/dL (9-20); Calcium 8.7 mg/dL (8.4-10.2); Carbon Dioxide 25 mmol/L (22-32); Chloride 104 mmol/L (98-107); Estimated Glomerular Filt Rate > 60 mL/min (>60); Glucose 120 mg/dL (70-99); HEMOLYSIS < 15 (0-50); Potassium 4.2 mmol/L (3.4-5.1); Sodium 138 mmol/L (137-145)
--- NOTE | 2025-07-01 07:35 | PM.DS.IH.1 ---
History of Present Illness History of Present Illness Date Patient Seen: 07/01/25 Time Patient Seen: 07:25 Chief complaint: possible infected kidney stone sent pcp fever wk Narrative: 60-year-old gentleman history of morbid obesity on Wegovy, colostomy, bladder fistula, currently on Macrobid for chronic UTI presents with intermittent fevers over the last few 1-2 weeks along with left kidney flank pain. He was advised to come to the ER for further evaluation by the PCP. Patient denies chest pain, shortness of breath, cough, nausea, vomiting, diarrhea. Other than what is stated 14 point review of systems negative. The patient has a history of colostomy in 2017 complicating a diverticular abscess, and subsequent development of a bladder fistula. He has been on Macrobid for the past 4-5 months. In the last month he is felt intermittent chills and in the last week developed left kidney flank pain. He has chronically shoemaker colored urine he feels is related to his bladder fistula. He has lost 50 lb in the last 2.5 months on Wegovy in anticipation of colostomy takedown surgery. Discharge Providers Provider Date of admission: 06/29/25 17:20 Discharge Date: 07/01/25 Primary care physician: Ari MAURER Provider Discharge provider: Noah Baca MD Summary Hospital Course Discharge Diagnosis: 1. Left pyelonephritis due to E coli, likely due to chronic fecal contamination of urine, can not rule out contributing left nephrolithiasis with chronic bacterial seeding. 2. History of diverticular abscess, status post colostomy, complicated by rectovesical fistula. 3. Leukocytosis due to 1. 4. Chronic pain, on chronic opioid therapy. 5. Severe obesity. Hospital Course: The patient was admitted and treated with broad-spectrum IV antibiotics, IV hydration and analgesics. He improved significantly over 1st 1-2 days with white blood count improving and remaining afebrile. Left flank pain resolved during hospitalization. Blood cultures showed no growth at the time of discharge. He was able to eat and tolerate a diet without problems, ambulating without difficulty interested in discharge home. No other issues arose. Outpatient follow-up his primary care provider and urologic and surgical consultation is advised to address the underlying mechanism of his recurrent infections, particularly, the rectovesical fistula and the left nephrolithiasis. It is also noted that the cultured E coli was resistant to nitrofurantoin. Urine Culture Final 07/01/25-0704 Organism 1 Escherichia coli [place]dell Count >100,000 CFU/ml Isolates that test intermediate or resistant to tetracycline should be tested against doxycycline or minocycline if those results are needed for treatment. Contact the lab within seven days if further workup is requested. 1. Escherichia coli M.I.C. RX --------- --- * Amoxicillin/Clavulanate <=2 S * Ampicillin 4 S * Cefazolin <=1 S * Cefepime E-test 0.064 S * Ceftriaxone <=0.25 S * Ciprofloxacin <=0.06 S * Ertapenem <=0.12 S * Gentamicin <=1 S * Levofloxacin <=0.12 S * Meropenem <=0.25 S * Nitrofurantoin >=512 R * Tetracycline >=16 R * Trimethoprim/Sulfamethoxazole <=20 S * Piperacillin/Tazobactam <=4 S Status at Discharge Cognitive/behavioral status at discharge: oriented Functional status at discharge: independent ambulation Overall status at discharge: patient is back to baseline Time Spent with Patient Time spent: Less than 30 minutes Exam Vital Signs (past 8 hours): - 07/01/25 00:00 07/01/25 04:00 Temperature 96.1 F L Pulse Rate 82 83 Respiratory Rate 18 16 Blood Pressure 108/47 L 107/60 Pulse Oximetry 94 96 Oxygen Flow Rate 0 0 Oxygen Delivery Method Room Air Oxygen Flow Rate 0 Narrative Exam Narrative: GENERAL: This is a pleasant obese male patient, in no apparent distress. EYES: Pupils equal round and reactive. Extraocular motions intact. No scleral icterus. No injection or drainage. ENT: Mucous membranes pink and moist. NECK: Trachea midline. No JVD, bruits or lymphadenopathy. Supple, nontender, no meningeal signs. CARDIOVASCULAR: Regular rate and rhythm without murmurs, gallops, or rubs. RESPIRATORY: Clear to auscultation. GASTROINTESTINAL: Abdomen soft, obese, LLQ coloscopy in place. EXTREMITIES: No clubbing, cyanosis, or edema. BACK: No CVA tenderness. NEUROLOGIC: Alert, oriented, speech fluent, full upper and lower motor strength, no focal deficits evident. DERMATOLOGIC: No rashes or skin lesions. Objective ECG Impression: EKG 06/29/2025: Normal sinus rhythm at 88bpm Imaging *: My impression: Abdomen-pelvis CT 06/29/2025: Conglomerate of nonobstructing calculi in the left lower pole, in aggregate measuring 1.2 cm. No obstructing calcified stone is seen, however there is delayed enhancement of the left kidney, which could be due to recently passed stone versus infection. Correlate urinalysis. Distended gallbladder. Correlate with any right upper quadrant symptoms. No radiopaque gallstones. Large ventral hernia containing most of the peritoneal contents. No bowel obstruction. Other findings above. Labs 07/01/25 04:46 07/01/25 04:46 Labs: Laboratory Results - last 24 hr 06/30/25 06/30/25 06/30/25 08:45 14:51 18:44 WBC 15.5 H RBC Hgb Hct MCV MCH MCHC RDW Plt Count Neut % (Auto) 68.5 Lymph % (Auto) 16.1 L Armstrong % (Auto) 8.8 Eos % (Auto) 5.1 H Baso % (Auto) 1.5 Neut # (Auto) 86817 H Lymph # (Auto) Armstrong # (Auto) Eos # (Auto) Baso # (Auto) Sodium 138 Potassium 4.5 Chloride 104 Carbon Dioxide 26 BUN 21 H Creatinine 1.08 Estimated GFR > 60 BUN/Creatinine Ratio 19.4 Glucose 148 H POC Whole Bld Glucose > 500 H* Lactate 1.9 Calcium 8.9 Total Bilirubin 0.3 AST 27 ALT 25 Alkaline Phosphatase 71 Total Protein 7.8 Albumin 3.8 Globulin 4.0 Albumin/Globulin Ratio 1.0 Procalcitonin 0.097 07/01/25 04:46 WBC 15.0 H RBC 3.92 L Hgb 12.3 L Hct 36.6 L MCV 93.4 MCH 31.5 MCHC 33.7 RDW 14.0 Plt Count 275 Neut % (Auto) 67.3 Lymph % (Auto) 18.3 L Armstrong % (Auto) 6.0 Eos % (Auto) 7.3 H Baso % (Auto) 1.1 Neut # (Auto) 59179 H Lymph # (Auto) 2700 Armstrong # (Auto) 900 Eos # (Auto) 1100 H Baso # (Auto) 200 H Sodium 138 Potassium 4.2 Chloride 104 Carbon Dioxide 25 BUN 22 H Creatinine 0.94 Estimated GFR > 60 BUN/Creatinine Ratio 23.4 H Glucose 120 H POC Whole Bld Glucose Lactate Calcium 8.7 Total Bilirubin AST ALT Alkaline Phosphatase Total Protein Albumin Globulin Albumin/Globulin Ratio Procalcitonin PFSH Social History household members: spouse Smoking Status: Never smoker alcohol intake: former Discharge Plan Discharge Plan Patient Disposition: Home Provider Discharge Comment: Followup with PCP 1 week Discharge orders & Medications Prescriptions: New cephalexin 500 mg capsule 500 mg PO TID Qty: 24 0RF Continued ACETAMINOPHEN 650 mg PO Q6H Qty: 0 ibuprofen 800 MG tablet 800 mg PO TIDP PRN (Reason: fever or pain) Qty: 0 hydromorphone [Dilaudid] 2 MG tablet 6 mg PO Q4HP PRN (Reason: pain) Qty: 0 Rx Instructions: 20mg per day metoprolol succinate 50 mg tablet extended release 24 hr 50 mg PO DAILY lisinopril 20 mg tablet 20 mg PO DAILY levothyroxine [Synthroid] 200 mcg tablet 225 mcg PO DAILY fexofenadine [Manuela Allergy] 180 mg tablet 180 mg PO DAILY Wegovy 2.4 mg/0.75 mL pen injector 2.4 mg SUBCUT Q7D Patient Comments: [NO ORIGINAL SIG] hydromorphone [Dilaudid] 4 MG tablet 2 tab PO QIDP PRN (Reason: pain) Rx Instructions: takes 20mg total per day Discontinued nitrofurantoin monohyd/m-cryst 100 mg capsule 1 cap PO BID Follow up/Referrals: ProviderAri [Primary Care Provider, Family Practice] Visit Report/Discharge Packet Stand Alone Forms: Patient Portal/API, Stroke Signs & Symptoms Discharge Data Primary Care Provider: Ari Martínez Attending Provider: Noah Baca V Admit Date/Time: 06/29/25 17:20 Quality VTE Deep Vein Thrombosis/Pulmonary Embolism Present on Admission: No MIPS - Admit I confirm the patient?s Advance Care Plan is present, Code status is documented, Surrogate decision maker is in patient?s record [If Yes, STOP here]: Yes MIPS - Meds 'Current medications' to include all prescriptions, [id number] products, herbals, cannabis/cannabidiol products, and vitamin/mineral/dietary (nutritional) supplements. I have utilized all available resources to obtain, update, or review the patient?s current medications. [If Yes, STOP here]: Yes MIPS - DC The patient has a history of heart transplant or Left Ventricular Assist Device (LVAD). If yes, STOP here.: No The patient has current or prior documentation of left ventricular ejection fraction (LVEF) less than or equal to 40%, or moderate or severely depressed left ventricular systolic function.: No A. The patient was prescribed or already taking an Angiotensin-Converting Enzyme (JONNY) Inhibitor, or Angiotensin Receptor Heidi (ARB).: Yes B. The patient was prescribed or already taking a beta-heidi. [If Yes to Both A & B, STOP here]: No Patient not prescribed/taking JONNY or ARB, no reason given.: No Patient not prescribed/taking beta-heidi, no reason given.: No PROFEE Charge Codes Discharge inpatient/observation: [id number]
[2025-07-01 07:54] VITALS: BP 127/85; PULSE 81; RESP 12; TEMP 36.5; O2SAT 97
[2025-07-01] MEDS: METOPROLOL ER 50 MG TABLET PO (09:20)
--- NOTE | 2025-07-01 11:21 | PC.NURSE ---
Patient discharged home.
== END 2025-07-01 09:30 | disposition home or self-care (01) ==
LOC: ED 14:51 → AC 17:21
PROVIDERS: Admitting Provider Internal Medicine; Emergency Provider Family Medicine; Referring Provider Family Medicine; Visit Provider Internal Medicine
DX: R10.9 Unspecified abdominal pain (principal); E66.01 Morbid (severe) obesity due to excess calories; N39.0 Urinary tract infection, site not specified; K43.9 Ventral hernia without obstruction or gangrene; N20.0 Calculus of kidney; N32.2 Vesical fistula, not elsewhere classified; Z93.3 Colostomy status; B96.20 Unspecified Escherichia coli [E. coli] as the cause of diseases classified elsewhere; G89.29 Other chronic pain; F11.20 Opioid dependence, uncomplicated; Z68.42 Body mass index [BMI] 45.0-49.9, adult
CPT/HCPCS: 36415; 74177; 80048; 80053; 81001; 82962; 83605; 83690; 84145; 85025; 87040; 87077; 87086; 87186; 93005; 96361; 96365; 96366; 96375; 96376; 99284; G0378; J0696; J1171; Q9967